=== PATIENT | male | born 1980 | race Caucasian/White ===

== ENCOUNTER 2019-02-19 13:02 | Emergency (ER) | payer BC ==
--- NOTE | 2019-02-19 13:48 | EDM.PDOC ---
ED HPI GENERAL MEDICAL PROBLEM - General Chief Complaint: Upper Extremity Injury/Pain Stated Complaint: SWOLLEN RIGHT ARM Time Seen by Provider: 02/19/19 13:29 Source of Information: Reports: Patient, RN Notes Reviewed History Limitations: Reports: No Limitations - History of Present Illness INITIAL COMMENTS - FREE TEXT/NARRATIVE: The patient is a 88-year-old male who presents to the ED for the evaluation of right arm swelling and pain. The patient states he has a history of the cellulitis, and elbow bursitis. The patient notes that he noticed some redness and pain to his right forearm roughly 1 week ago. He denies any traumatic injury to the area. He states that he went to the walk-in clinic Wednesday and had an ultrasound, and was diagnosed with cellulitis at that time and started on cephalexin. The patient notes that he did take his antibiotics as previously prescribed, however the redness and pain is worsening. He notes there is more swelling to this area. He notes that he still has full range of motion to his hand, he denies any pain into his elbow. There is some skin redness with well demarcated borders. The patient states that he has been taking quite a bit of ibuprofen for pain relief. He cannot state whether or not he has had an actual fever to taking the ibuprofen. He states he's been taking 800 mg 4 times a day. Right Lower Arm Pain Score (Numeric/FACES): 5 - Related Data Allergies Allergy/AdvReac Type Severity Reaction Status Date / Time No Known Allergies Allergy Verified 02/19/19 13:21 Home Meds: Home Meds Albuterol [Ventolin HFA] 1 inh INH ASDIRECTED 02/19/19 [History] Buprenorphine HCl/Naloxone HCl [Suboxone 4 mg-1 mg Sl Film] 1 tab PO ASDIRECTED 02/19/19 [History] Cephalexin [Keflex] 1 tab PO QID 02/19/19 [History] Doxycycline [Vibramycin] 100 mg PO BID #20 tab 02/19/19 [Rx] Past Medical History Respiratory History: Reports: Asthma Dermatologic History: Reports: Other (See Below) Other Dermatologic History: burisitis to left and right elbows Social & Family History - Tobacco Use Smoking Status *Q: Current Every Day Smoker Years of Tobacco use: 8 Packs/Tins Daily: 0.5 - Caffeine Use Caffeine Use: Reports: Coffee - Recreational Drug Use Recreational Drug Use: Yes Drug Use in Last 12 Months: No Review of Systems - Review of Systems Review Of Systems: See Below Constitutional: Reports: No Symptoms Eyes: Reports: No Symptoms Ears: Reports: No Symptoms Nose: Reports: No Symptoms Mouth/Throat: Reports: No Symptoms Respiratory: Reports: No Symptoms Cardiovascular: Reports: No Symptoms GI/Abdominal: Reports: No Symptoms Genitourinary: Reports: No Symptoms Musculoskeletal: Reports: Arm Pain (right arm pain/swelling) ED EXAM, GENERAL - Physical Exam Exam: See Below Exam Limited By: No Limitations General Appearance: Alert, WD/WN, No Apparent Distress Eye Exam: Bilateral Eye: Normal Inspection Respiratory/Chest: No Respiratory Distress, Lungs Clear, Normal Breath Sounds, No Accessory Muscle Use, Chest Non-Tender Cardiovascular: Normal Peripheral Pulses, Regular Rate, Rhythm, No Murmur Peripheral Pulses: 3+: Radial (L), Radial (R) Extremities: Normal Capillary Refill, Arm Pain (to right posterior arm, swelling noted to R forearm), Increased Warmth, Redness (well demarcated borders ) Neurological: Alert, Oriented, Normal Cognition, Normal Gait, No Motor/Sensory Deficits Psychiatric: Normal Affect, Normal Mood Skin Exam: Warm, Dry, Intact, Normal Color, No Rash Course - Vital Signs Last Recorded V/S: Last Vital Signs Temp 97.9 F 02/19/19 13:16 Pulse 86 02/19/19 13:16 Resp 16 02/19/19 13:16 BP 116/82 02/19/19 13:22 Pulse Ox 100 02/19/19 13:16 - Re-Assessments/Exams Free Text/Narrative Re-Assessment/Exam: 02/19/19 13:53 Patient presents to the ED for the evaluation of right arm swelling. I have switched his antibiotics to doxycycline 100 mg twice a day for 10 days. I will have the nurse Georges the border of his cellulitis of the skin marker and have educated him on signs and symptoms for when to be concerned. He may still take ibuprofen as needed for pain relief. Departure - Departure Time of Disposition: 13:44 Disposition: Home, Self-Care 01 Condition: Fair Clinical Impression: Cellulitis of upper extremity Qualifiers: Laterality: right Qualified Code(s): L03.113 - Cellulitis of right upper limb - Discharge Information *PRESCRIPTION DRUG MONITORING PROGRAM REVIEWED*: No *COPY OF PRESCRIPTION DRUG MONITORING REPORT IN PATIENT ELLY: No Prescriptions: Doxycycline [Vibramycin] 100 mg PO BID #20 tab Instructions: Cellulitis, Adult, [id number] Referrals: PCP,None [Primary Care Provider] - Forms: ED Department Discharge Additional Instructions: You have been evaluated in the ED today for the cellulitis on your right arm. Please stop taking the cephalexin as previously prescribed by a provider in the walk-in clinic. You have been provided with a new antibiotic prescription. This is doxycycline 100 mg twice a day for 10 days. This prescription was electronically sent to the [facility] pharmacy located near [facility]. They are open only from 1 to 4 PM today. The borders of your cellulitis have been marked with a skin marker. This will stay on a few days. If the redness should spread at least 2 fingerbreadths beyond this border, this would be cause for concern to return for immediate evaluation. Please return to the ED if your symptoms should change or worsen.
== END 2019-02-19 14:03 | disposition home or self-care (01) ==
LOC: JD.ED 13:02
DX: L03.113 Cellulitis of right upper limb (principal); F17.210 Nicotine dependence, cigarettes, uncomplicated; J45.909 Unspecified asthma, uncomplicated
CPT/HCPCS: 99283

== ENCOUNTER 2019-02-21 09:52 | Emergency (ER) | payer BC ==
[2019-02-21] MEDS ORDERED: Sodium Chloride 0.9% 10 ML Syringe FLUSH PRN (10:20)
--- NOTE | 2019-02-21 11:04 | EDM.PDOC ---
ED HPI GENERAL MEDICAL PROBLEM - General Chief Complaint: Upper Extremity Injury/Pain Stated Complaint: R ARM SWELLING/SEEN WEDNESDAY NOT BETTER Time Seen by Provider: 02/21/19 10:02 Source of Information: Reports: Patient History Limitations: Reports: No Limitations - History of Present Illness INITIAL COMMENTS - FREE TEXT/NARRATIVE: 38 y/o male presents to ER with cc right lower arm pain. He states the pain started 6 days ago. He went to the walk in clinic where is was diagnosis with cellulitis and started on antibiotics. He was seen 3 days ago because the redness had spread and his arm was more swollen. He was given additional antibiotics. He presents today with increased pain, swelling and redness. He reports he feels his hand is going to sleep at times. He denies any fever or chills. He reports he is right handed. He denies any illicit drug use. He admits to using IV drugs in the past. He states he hasn't used in months. He does not have a PCP. Onset Date: 02/15/19 Onset Time: 09:00 Duration: Getting Worse Location: Reports: Upper Extremity, Right Improves with: Reports: None Worsens with: Reports: Movement Associated Symptoms: Denies: Fever/Chills, Nausea/Vomiting, Rash, Shortness of Breath, Weakness - Related Data Allergies Allergy/AdvReac Type Severity Reaction Status Date / Time No Known Allergies Allergy Verified 02/21/19 10:02 Home Meds: Home Meds Albuterol [Ventolin HFA] 1 inh INH ASDIRECTED 02/19/19 [History] Buprenorphine HCl/Naloxone HCl [Suboxone 4 mg-1 mg Sl Film] 1 tab PO ASDIRECTED 02/19/19 [History] Doxycycline [Vibramycin] 100 mg PO BID #20 tab 02/19/19 [Rx] Clindamycin HCl 300 mg PO TID 1 Days #30 capsule 02/21/19 [Rx] Past Medical History Respiratory History: Reports: Asthma Dermatologic History: Reports: Other (See Below) Other Dermatologic History: burisitis to left and right elbows Social & Family History - Tobacco Use Smoking Status *Q: Current Every Day Smoker Years of Tobacco use: 8 Packs/Tins Daily: 0.5 - Caffeine Use Caffeine Use: Reports: Coffee - Recreational Drug Use Recreational Drug Use: No Review of Systems - Review of Systems Review Of Systems: See Below Constitutional: Denies: Chills, Fever Eyes: Reports: No Symptoms Ears: Reports: No Symptoms Nose: Reports: No Symptoms Mouth/Throat: Reports: No Symptoms Respiratory: Denies: Shortness of Breath Cardiovascular: Denies: Chest Pain GI/Abdominal: Reports: No Symptoms Genitourinary: Reports: No Symptoms Musculoskeletal: Reports: Hand Pain, Joint Pain, Other (right lower arm swelling and painful) Skin: Reports: Other (right lower arm redness with moderate swelling) Neurological: Reports: No Symptoms Psychiatric: Reports: No Symptoms ED EXAM, GENERAL - Physical Exam Exam: See Below Exam Limited By: No Limitations General Appearance: Alert, WD/WN, No Apparent Distress Respiratory/Chest: No Respiratory Distress, Lungs Clear, Normal Breath Sounds, No Accessory Muscle Use, Chest Non-Tender Cardiovascular: Normal Peripheral Pulses, Regular Rate, Rhythm, No Edema, No Gallop, No JVD, No Murmur, No Rub Extremities: No Pedal Edema, Limited Range of Motion, Other (right lower later forearm moderate swelling with cellulitis, his hand is cool to touch, neurovascularly intact.) Neurological: Alert, Oriented, CN II-XII Intact, Normal Cognition, Normal Gait Psychiatric: Normal Affect, Normal Mood Skin Exam: Warm, Dry, Intact, No Rash Lymphatic: No Adenopathy Course - Vital Signs Last Recorded V/S: Last Vital Signs Temp 98.9 F 02/21/19 09:59 Pulse 83 02/21/19 09:59 Resp 16 02/21/19 09:59 BP 139/83 02/21/19 09:59 Pulse Ox 99 02/21/19 09:59 - Orders/Labs/Meds Labs: Laboratory Tests 02/21/19 02/21/19 Range/Units 11:38 11:38 D-Dimer, Quantitative 0.84 H (0.19-0.50) mg/L C-Reactive Protein 20.0 H* (<1.0) mg/dL Meds: Medications Discontinued Medications Generic Name Dose Route Start Last Admin Trade Name Freq PRN Reason Stop Dose Admin Clindamycin HCl 450 mg 02/21/19 12:26 02/21/19 12:37 Cleocin PO 02/21/19 12:27 450 mg NOW STA Administration Sodium Chloride 10 ml 02/21/19 10:20 Saline Flush FLUSH ASDIRECTED PRN Keep Vein Open - Re-Assessments/Exams Free Text/Narrative Re-Assessment/Exam: 02/21/19 11:52 Labs pending, delayed because patient is a hard stick. Ultrasound was performed. Waiting for results. 02/21/19 12:00 right arm ultrasound impression forearm edema, no evidence of venous thrombosis was in the right upper extremity. 02/21/19 12:25 d dimer 0.84 I feel this is due to his infection since his ultrasound was negative. CRP is 20. 02/21/19 12:50 I discussed possible admission with patient. Patient elected to go home with additional new antibiotic clindamycin. I instructed the patient appears not better within 48 hours that he should return to emergency room for possible admission for IV antibiotic therapy. Patient verbalized understanding and is comfortable plan for discharge. Instructed patient to follow up with his PCP. I will discharge home with clindamycin probably should not therapy. Instructed to return to the emergency room for any new or acutely worsening symptoms. Departure - Departure Time of Disposition: 12:48 Disposition: Home, Self-Care 01 Clinical Impression: Cellulitis Qualifiers: Site of cellulitis: extremity Site of cellulitis of extremity: upper extremity Laterality: right Qualified Code(s): L03.113 - Cellulitis of right upper limb - Discharge Information Prescriptions: Clindamycin HCl 300 mg PO TID 1 Days #30 capsule Instructions: Cellulitis, Adult Referrals: PCP,None [Primary Care Provider] - Forms: ED Department Discharge Additional Instructions: You have been diagnosis with right forearm cellulitis. I am adding Clindamycin to your antibiotic regiment. follow up with your PCP. Return to the ER for any new or acute worsening symptoms.
--- NOTE | 2019-02-21 11:51 | US ---
Right upper extremity venous ultrasound: Duplex and color flow imaging was obtained of the right internal jugular, subclavian, axillary, brachial, cephalic, basilic, radial and ulnar veins. Left internal jugular vein also evaluated. Subcutaneous edema is seen within the right forearm. Right cephalic vein is small in size. Other right upper extremity veins show normal phasic flow, augmentation and compression. Subclavicular lymph nodes are seen on the right side believed to be within normal limits. Impression: 1. Forearm edema. 2. No evidence of venous thrombosis within the right upper extremity. Diagnostic code #2
[2019-02-21] MEDS ORDERED: Clindamycin HCl 150 MG Cap PO STA (12:26)
== END 2019-02-21 13:00 | disposition home or self-care (01) ==
LOC: JD.ED 09:52
DX: L03.113 Cellulitis of right upper limb (principal); J45.909 Unspecified asthma, uncomplicated; F17.210 Nicotine dependence, cigarettes, uncomplicated; Z79.899 Other long term (current) drug therapy
CPT/HCPCS: 36415; 85379; 86140; 93971; 99284; A9270; 99283

== ENCOUNTER 2019-02-23 10:33 | Inpatient (IN) | payer BC ==
[2019-02-23] MEDS ORDERED: Sodium Chloride 0.9% 1,000 ML IV ONE (11:41)
[2019-02-23] MEDS ORDERED: HYDROmorphone 0.5 MG/0.5 ML Syringe IVPUSH ONE (11:41)
[2019-02-23] MEDS ORDERED: Sodium Chloride 0.9% 10 ML Syringe FLUSH PRN (11:43)
--- NOTE | 2019-02-23 11:48 | EDM.PDOC ---
ED HPI GENERAL MEDICAL PROBLEM - General Chief Complaint: Upper Extremity Injury/Pain Stated Complaint: RT ARM SWOLLEN Time Seen by Provider: 02/23/19 11:34 Source of Information: Reports: Patient History Limitations: Reports: No Limitations - History of Present Illness INITIAL COMMENTS - FREE TEXT/NARRATIVE: 38-year-old male sent over that from the clinic for hospitalization for cellulitis. Review patient's records show he is was seen on and for this. Reportedly symptoms started about a week prior to the . He seen at the walk- in clinic initially started on Keflex. During his ER stay on the switched to doxycycline and most recently during his visit on the he was started on clindamycin as well. He states he has been taking the doxycycline and clindamycin as prescribed but his symptoms are worsening. He did have an ultrasound of the right upper extremity which showed edema but no blood clot. He reports associated symptoms of chills and vomiting but states this could be due to taking the antibiotic on an empty stomach. Reports intermittent numbness and tingling into the arm. Reports significant pain, swelling and erythema to the right arm. Patient was previously seeing Dr. Todd for bursitis to both elbows. He has had trouble with bursitis to the left elbow in particular. Canceled appointment on February [address] Todd. Sounds as if this appointment was to discuss if he would require surgery for the bursitis. He states he's never had any surgeries to either elbow. he has no hardware from any previous fractures in the right arm. 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 Right Arm Pain Score (Numeric/FACES): 8 - Related Data Allergies Allergy/AdvReac Type Severity Reaction Status Date / Time No Known Allergies Allergy Verified 02/23/19 10:48 Home Meds: Home Meds Albuterol [Ventolin HFA] 2 inh INH TID PRN 02/19/19 [History] Buprenorphine HCl/Naloxone HCl [Suboxone 4 mg-1 mg Sl Film] 8 mg PO ASDIRECTED 02/19/19 [History] Doxycycline [Vibramycin] 100 mg PO BID #20 tab 02/19/19 [Rx] Clindamycin HCl 300 mg PO TID 1 Days #30 capsule 02/21/19 [Rx] Past Medical History HEENT History: Reports: Impaired Vision Cardiovascular History: Reports: None Respiratory History: Reports: Asthma Gastrointestinal History: Reports: None Genitourinary History: Reports: None Musculoskeletal History: Reports: None Neurological History: Reports: None Psychiatric History: Reports: None Endocrine/Metabolic History: Reports: None Hematologic History: Reports: None Immunologic History: Reports: None Oncologic (Cancer) History: Reports: None Dermatologic History: Reports: Other (See Below) Other Dermatologic History: burisitis to left and right elbows - Infectious Disease History Infectious Disease History: Reports: None - Past Surgical History HEENT Surgical History: Reports: Oral Surgery Social & Family History - Family History Family Medical History: Noncontributory Cardiac: Reports: [place] Endocrine/Metabolic: Reports: Diabetes, type II - Tobacco Use Smoking Status *Q: Current Every Day Smoker Years of Tobacco use: 10 Packs/Tins Daily: 1 - Caffeine Use Caffeine Use: Reports: Coffee, Soda, Tea - Recreational Drug Use Recreational Drug Use: Yes Drug Use in Last 12 Months: No Recreational Drug Type: Reports: Cocaine, Heroin, Marijuana/Hashish, Methamphetamine Recreational Drug Use Frequency: Not Used In Over 1 Year Review of Systems - Review of Systems Review Of Systems: See Below Constitutional: Reports: Chills. Denies: Fever GI/Abdominal: Reports: Vomiting. Denies: Nausea Musculoskeletal: Reports: Arm Pain (right arm) Skin: Reports: Erythema Neurological: Reports: Numbness (intermittent right arm), Tingling ( intermittent right arm) ED EXAM, GENERAL - Physical Exam Exam: See Below Exam Limited By: No Limitations General Appearance: Alert, WD/WN, No Apparent Distress Respiratory/Chest: No Respiratory Distress, Lungs Clear, Normal Breath Sounds Cardiovascular: Normal Peripheral Pulses, Regular Rate, Rhythm, No Murmur Peripheral Pulses: 2+: Radial (L), Radial (R) Extremities: Normal Range of Motion (right upper extremity), Other (significant swelling and erythema to the right upper extremity, no palpable abscess appreciated, area of erythema is approximately [id number] ) Neurological: Alert, Oriented, Normal Cognition Psychiatric: Normal Affect, Normal Mood Course - Vital Signs Last Recorded V/S: Last Vital Signs Temp 97.7 F 02/23/19 16:04 Pulse 79 02/23/19 16:04 Resp 18 02/23/19 16:04 BP 130/111 H 02/23/19 16:04 Pulse Ox 98 02/23/19 16:04 - Orders/Labs/Meds Orders: Active Orders 24 hr Category Date Time Status Peripheral IV Care [RC] Q2HR Care 02/23/19 11:43 Active CULTURE BLOOD [BC] Stat Lab 02/23/19 13:30 Received CULTURE BLOOD [BC] Stat Lab 02/23/19 17:55 Received DRUG SCREEN, URINE [URCHEM] Stat Lab 02/23/19 13:43 Ordered Sodium Chloride 0.9% [Saline Flush] Med 02/23/19 11:43 Active 10 ml FLUSH ASDIRECTED PRN Blood Culture x2 Reflex Set [OM.PC] Stat Oth 02/23/19 11:41 Ordered Peripheral IV Insertion Adult [OM.PC] Routine Oth 02/23/19 11:43 Ordered Medication Orders Enoxaparin Sodium (Lovenox) 40 mg SUBCUT DAILY [facility] Vancomycin HCl 1 gm/ Sodium (Chloride) 250 mls @ 250 mls/hr IV Q8H [facility] Ketorolac Tromethamine (Toradol) 30 mg IM Q6H PRN PRN Reason: Pain Last Admin: 02/23/19 16:55 Dose: 30 mg Ondansetron HCl (Zofran Odt) 4 mg PO Q4H PRN PRN Reason: nausea, able to take PO Oxycodone HCl (Oxycodone) 5 - 10 mg PO Q4H PRN PRN Reason: Pain (moderate 4-6) Sodium Chloride (Saline Flush) 10 ml FLUSH ASDIRECTED PRN PRN Reason: Keep Vein Open Last Admin: 02/23/19 12:50 Dose: 10 ml Vancomycin HCl (Pharmacy To Dose - Vancomycin) 1 dose .XX ASDIRECTED [facility] Labs: Laboratory Tests 02/23/19 02/23/19 Range/Units 12:30 12:30 WBC 11.33 H (4.23-9.07) K/mm3 RBC 4.80 (4.63-6.08) M/mm3 Hgb 13.6 L (13.7-17.5) gm/L Hct 41.0 (40.1-51.0) % MCV 85.4 (79.0-92.2) fl MCH 28.3 (25.7-32.2) pg MCHC 33.2 (32.2-35.5) g/dl RDW Std Deviation 44.2 H (35.1-43.9) fL Plt Count 400 H (163-337) K/mm3 MPV 9.6 (9.4-12.3) fl Neutrophils % (Manual) 71 H (40-60) % Band Neutrophils % 0 (0-10) % Lymphocytes % (Manual) 22 (20-40) % Atypical Lymphs % 0 % Monocytes % (Manual) 1 L (2-10) % Eosinophils % (Manual) 6 (0.8-7.0) % Basophils % (Manual) 0 L (0.2-1.2) Platelet Estimate Adequate RBC Morph Comment Normal Sodium 137 (136-145) mEq/L Potassium 4.7 (3.5-5.1) mEq/L Chloride 86 L (98-107) mEq/L Carbon Dioxide 28 (21-32) mEq/L Anion Gap 27.7 H (5-15) BUN 19 H (7-18) mg/dL Creatinine 1.0 (0.7-1.3) mg/dL Est Cr Clr Drug Dosing 100.58 mL/min Estimated GFR (MDRD) > 60 (>60) mL/min BUN/Creatinine Ratio 19.0 H (14-18) Glucose 77 (74-106) mg/dL Calcium 9.5 (8.5-10.1) mg/dL Magnesium 1.7 L (1.8-2.4) mg/dl Total Bilirubin 0.3 (0.2-1.0) mg/dL AST 31 (15-37) U/L ALT 36 (16-63) U/L Alkaline Phosphatase 94 (46-116) U/L C-Reactive Protein < 0.2 (<1.0) mg/dL Total Protein 8.2 (6.4-8.2) g/dl Albumin 2.9 L (3.4-5.0) g/dl Globulin 5.3 gm/dL Albumin/Globulin Ratio 0.6 L (1-2) Meds: Medications Generic Name Dose Route Start Last Admin Trade Name Freq PRN Reason Stop Dose Admin Enoxaparin Sodium 40 mg 02/24/19 09:00 Lovenox SUBCUT DAILY [facility] Vancomycin HCl 1 gm/ Sodium 250 mls @ 250 mls/hr 02/24/19 02:00 Chloride IV Q8H [facility] Ketorolac Tromethamine 30 mg 02/23/19 16:53 02/23/19 16:55 Toradol IM 30 mg Q6H PRN Administration Pain Ondansetron HCl 4 mg 02/23/19 16:48 Zofran Odt PO Q4H PRN nausea, able to take PO Oxycodone HCl 5 - 10 mg 02/23/19 16:48 Oxycodone PO Q4H PRN Pain (moderate 4-6) Sodium Chloride 10 ml 02/23/19 11:43 02/23/19 12:50 Saline Flush FLUSH 10 ml ASDIRECTED PRN Administration Keep Vein Open Vancomycin HCl 1 dose 02/23/19 17:00 Pharmacy To Dose - Vancomycin .XX ASDIRECTED YESI Discontinued Medications Generic Name Dose Route Start Last Admin Trade Name Freq PRN Reason Stop Dose Admin Hydromorphone HCl 0.5 mg 02/23/19 11:41 02/23/19 12:47 Dilaudid IVPUSH 02/23/19 11:42 0.5 mg ONETIME ONE Administration Sodium Chloride 1,000 mls @ 999 mls/hr 02/23/19 11:41 02/23/19 12:49 Normal Saline IV 02/23/19 12:41 999 mls/hr ONETIME ONE Administration Vancomycin HCl 1 gm/ 500 mls @ 250 mls/hr 02/23/19 12:15 02/23/19 18:00 Vancomycin HCl 500 mg/ Sodium IV 02/23/19 14:14 250 mls/hr Chloride ONETIME ONE Administration Magnesium Oxide 800 mg 02/23/19 18:00 02/23/19 18:07 Magnesium Oxide PO 02/23/19 18:01 800 mg ONETIME ONE Administration Oxycodone HCl 5 mg 02/23/19 16:26 02/23/19 16:32 Oxycodone PO 02/23/19 16:27 5 mg ONETIME ONE Administration Vancomycin HCl 1 dose 02/23/19 11:41 02/23/19 18:02 Pharmacy To Dose - Vancomycin .XX 02/23/19 11:42 Not Given ONETIME ONE - Re-Assessments/Exams Free Text/Narrative Re-Assessment/Exam: 02/23/19 13:34 Difficulty obtaining IV access. 22 gauge placed to the left anterior chest, unable to obtain blood culutures and start vanc with this. Dr. Todd in ED for another case, informed of patient. Patient seen by Dr. Todd and felt to be only cellulitis. Good ROM of the right arm. Case discussed with Dr. Benz, hospitalist on, agrees to admit the patient pending obtaining more reliable access. Discussed with Dr. Bhatti, surgery electronics research engineer who has come to the ER and placed a central line. Patient to be admitted to the floor under Dr. Benz. Departure - Departure Time of Disposition: 13:00 Disposition: Admitted As Inpatient 67 Condition: Serious Clinical Impression: Cellulitis of upper extremity Qualifiers: Laterality: right Qualified Code(s): L03.113 - Cellulitis of right upper limb - Discharge Information *PRESCRIPTION DRUG MONITORING PROGRAM REVIEWED*: No *COPY OF PRESCRIPTION DRUG MONITORING REPORT IN PATIENT ELLY: No - My Orders Last 24 Hours: My Active Orders 02/23/19 11:41 Blood Culture x2 Reflex Set [OM.PC] Stat 02/23/19 11:43 Peripheral IV Care [RC] Q2HR Sodium Chloride 0.9% [Saline Flush] 10 ml FLUSH ASDIRECTED PRN Peripheral IV Insertion Adult [OM.PC] Routine 02/23/19 13:30 CULTURE BLOOD [BC] Stat 02/23/19 13:43 DRUG SCREEN, URINE [URCHEM] Stat 02/23/19 17:55 CULTURE BLOOD [BC] Stat - Assessment/Plan Last 24 Hours: My Active Orders 02/23/19 11:41 Blood Culture x2 Reflex Set [OM.PC] Stat 02/23/19 11:43 Peripheral IV Care [RC] Q2HR Sodium Chloride 0.9% [Saline Flush] 10 ml FLUSH ASDIRECTED PRN Peripheral IV Insertion Adult [OM.PC] Routine 02/23/19 13:30 CULTURE BLOOD [BC] Stat 02/23/19 13:43 DRUG SCREEN, URINE [URCHEM] Stat 02/23/19 17:55 CULTURE BLOOD [BC] Stat
[2019-02-23] MEDS ORDERED: Vancomycin 1 GM, Vancomycin 500 MG in Sodium Chloride 0.9% 500 ML IV ONE (12:15)
--- NOTE | 2019-02-23 14:23 | PCM.SN ---
- Free Text/Narrative Note: Anesthesia Note: Anesthesia requested for difficult IV placement. 22 gauge to left upper arm placed times two attempts. Site patent and intact and flushed with 20ml's of normal saline. Anesthesia attempted via US guidance to place a larger bore IV catheter, without any success. (2 attempts noted.) Anesthesia attempted to draw blood for lab studies, with only a small amount of blood obtained. Anesthesia discussed difficult IV placement with patient history of IV drug abuse with Dr. Winn and Dr. Benz. Recommendation for Central Catheter placement recommended for intermediate frame tender antibiotic therapy and warranted blood draws. Thank you! aPt Vo CRNA
--- NOTE | 2019-02-23 15:41 | PCM.CONS ---
H&P History of Present Illness - General Date of Service: 02/23/19 Admit Problem/Dx: Admission Diagnosis/Problem Admission Diagnosis/Problem Cellulitis Source of Information: Patient, Provider History Limitations: Reports: No Limitations - History of Present Illness Initial Comments - Free Text/Narative: The patient is a 38 y/o gentleman who presents with a right forearm cellulitis. He reports the pain started about 2 weeks ago, but really started to become symptomatic in the past week. He was treated with a course of PO cephalexin, and then a PO course of doxycycline and clindamycin, but this did not address the infection. He presented to the ED for continued treatment. IV access was attempted in a peripheral vein, but was unsuccessful. Consult was placed for central venous access. Right Arm Pain Score (Numeric/FACES): 8 - Related Data Allergies/Adverse Reactions: Allergies Allergy/AdvReac Type Severity Reaction Status Date / Time No Known Allergies Allergy Verified 02/23/19 10:48 Home Medications: Home Meds Albuterol [Ventolin HFA] 1 inh INH ASDIRECTED 02/19/19 [History] Buprenorphine HCl/Naloxone HCl [Suboxone 4 mg-1 mg Sl Film] 1 tab PO ASDIRECTED 02/19/19 [History] Doxycycline [Vibramycin] 100 mg PO BID #20 tab 02/19/19 [Rx] Clindamycin HCl 300 mg PO TID 1 Days #30 capsule 02/21/19 [Rx] Past Medical History HEENT History: Reports: Impaired Vision Cardiovascular History: Reports: None Respiratory History: Reports: Asthma Gastrointestinal History: Reports: None Genitourinary History: Reports: None Musculoskeletal History: Reports: None Neurological History: Reports: None Psychiatric History: Reports: None Endocrine/Metabolic History: Reports: None Hematologic History: Reports: None Immunologic History: Reports: None Oncologic (Cancer) History: Reports: None Dermatologic History: Reports: Other (See Below) Other Dermatologic History: burisitis to left and right elbows - Infectious Disease History Infectious Disease History: Reports: None - Past Surgical History HEENT Surgical History: Reports: Oral Surgery Social & Family History - Family History Cardiac: Reports: [place] Endocrine/Metabolic: Reports: Diabetes, type II - Tobacco Use Smoking Status *Q: Current Every Day Smoker Years of Tobacco use: 10 Packs/Tins Daily: 1 - Caffeine Use Caffeine Use: Reports: Coffee, Soda, Tea - Recreational Drug Use Recreational Drug Use: Yes Drug Use in Last 12 Months: No Recreational Drug Type: Reports: Cocaine, Heroin, Marijuana/Hashish, Methamphetamine Recreational Drug Use Frequency: Not Used In Over 1 Year H&P Review of Systems - Review of Systems: Review Of Systems: See Below General: Reports: No Symptoms HEENT: Reports: No Symptoms Pulmonary: Reports: Other (asthma symptoms) Cardiovascular: Reports: No Symptoms Gastrointestinal: Reports: No Symptoms Genitourinary: Reports: No Symptoms Musculoskeletal: Reports: Other (erythema and pain in right forearm) Skin: Reports: Other (erythema of right forearm) Psychiatric: Reports: No Symptoms Neurological: Reports: No Symptoms Exam - Exam Exam: See Below - Vital Signs Vital Signs: Last Vital Signs Temp 36.9 C 02/23/19 10:52 Pulse 84 02/23/19 10:52 Resp 16 02/23/19 10:52 BP 144/84 H 02/23/19 10:52 Pulse Ox 100 02/23/19 10:52 Weight: 70.307 kg - Exam Quality Assessment: No: Supplemental Oxygen General: Alert, Oriented, Mild Distress (secondary to pain) HEENT: Conjunctiva Clear, EOMI Neck: Supple Lungs: Normal Respiratory Effort GI/Abdominal Exam: Soft, Non-Tender Extremities: Normal Inspection, No Pedal Edema Peripheral Pulses: 2+: Dorsalis Pedis (L), Dorsalis Pedis (R) Skin: Dry, Intact, Other (erythema and swelling involving the volar aspect of the right forarm, no fluctuance) Neurological: Cranial Nerves Intact Neuro Extensive - Mental Status: Alert, Oriented x3 - Patient Data Lab Results Last 24 hrs: Laboratory Results - last 24 hr 02/23/19 02/23/19 Range/Units 12:30 12:30 WBC 11.33 H (4.23-9.07) K/mm3 RBC 4.80 (4.63-6.08) M/mm3 Hgb 13.6 L (13.7-17.5) gm/L Hct 41.0 (40.1-51.0) % MCV 85.4 (79.0-92.2) fl MCH 28.3 (25.7-32.2) pg MCHC 33.2 (32.2-35.5) g/dl RDW Std Deviation 44.2 H (35.1-43.9) fL Plt Count 400 H (163-337) K/mm3 MPV 9.6 (9.4-12.3) fl Neutrophils % (Manual) 71 H (40-60) % Band Neutrophils % 0 (0-10) % Lymphocytes % (Manual) 22 (20-40) % Atypical Lymphs % 0 % Monocytes % (Manual) 1 L (2-10) % Eosinophils % (Manual) 6 (0.8-7.0) % Basophils % (Manual) 0 L (0.2-1.2) Platelet Estimate Adequate RBC Morph Comment Normal Sodium 137 (136-145) mEq/L Potassium 4.7 (3.5-5.1) mEq/L Chloride 86 L (98-107) mEq/L Carbon Dioxide 28 (21-32) mEq/L Anion Gap 27.7 H (5-15) BUN 19 H (7-18) mg/dL Creatinine 1.0 (0.7-1.3) mg/dL Est Cr Clr Drug Dosing 100.58 mL/min Estimated GFR (MDRD) > 60 (>60) mL/min BUN/Creatinine Ratio 19.0 H (14-18) Glucose 77 (74-106) mg/dL Calcium 9.5 (8.5-10.1) mg/dL Magnesium 1.7 L (1.8-2.4) mg/dl Total Bilirubin 0.3 (0.2-1.0) mg/dL AST 31 (15-37) U/L ALT 36 (16-63) U/L Alkaline Phosphatase 94 (46-116) U/L C-Reactive Protein < 0.2 (<1.0) mg/dL Total Protein 8.2 (6.4-8.2) g/dl Albumin 2.9 L (3.4-5.0) g/dl Globulin 5.3 gm/dL Albumin/Globulin Ratio 0.6 L (1-2) Result Diagrams: 02/23/19 12:30 02/23/19 12:30 Consult PN Assessment/Plan Procedures: Procedures EMERGENCY DEPT VISIT (02/19/19) (1) Cellulitis of upper extremity Current Visit: No Qualifiers: Laterality: right Qualified Code(s): L03.113 - Cellulitis of right upper limb Problem List Initiated/Reviewed/Updated: Yes My Orders Last 24 Hours: My Active Orders 02/23/19 15:19 Chest 1V Frontal [CR] Stat Plan: 38 y/o male with celluitis of right forearm, need for venous access - Discussed risks of infection and pneumothorax as well as some blood loss associated with central line placement. Written consent was obtained. Placed a right central venous catheter in the IJ - will obtain CXR to confirm placement and check for PTX - medical management per primary team Marci Higgins MD General Surgery
--- NOTE | 2019-02-23 15:43 | PCM.OPNOTE ---
- General Post-Op/Procedure Note Date of Surgery/Procedure: 02/23/19 Operative Procedure(s): central line placement in the right internal jugular vein Findings: patent internal jugular Pre Op Diagnosis: inabilitly to find peripheral venous access, need for IV antibiotics Post-Op Diagnosis: same Anesthesia Technique: Local Primary Surgeon: Marci Higgins Pathology: none EBL in mLs: 5 Complications: none apparent Condition: Good
--- NOTE | 2019-02-23 15:44 | PCM.PRNOTE ---
- Free Text/Narrative Note: Date: February 23, 2019 Pre-procedure diagnosis: cellulitis of the right forearm, unable to gain peripheral IV access Post-procedure diagnosis: Same Procedure: Ultrasound guided placement of right internal jugular vein central venous catheter Surgeon: Marci Higgins MD Anesthesia: 1% lidocaine Estimated blood loss: 5mL IVF: N/A Indication: Intravenous access for antibiotic therapy Description of the procedure: A time-out was completed verifying correct patient, procedure, and site. The patient was placed in supine position appropriate for central line placement based on the vein to be cannulated. The patients right neck was prepped and draped in sterile fashion. 1% Lidocaine was used to anesthetize the surrounding skin area. The ultrasound was used to isolate the internal jugular vein. The vein was accessed with a single puncture and the guidewire was placed into the lumen without difficulty. A triple lumen 7-[place] catheter was introduced into the the internal jugular vein using the Seldinger technique and under ultrasound guidance. The catheter was threaded smoothly over the guide wire and appropriate blood return was obtained. Each lumen of the catheter was evacuated of air and flushed with sterile saline. The catheter was then sutured in place to the skin and a sterile dressing applied. The patient tolerated the procedure well and there were no apparent complications. A chest x-ray was ordered to confirm placement. Marci Higgins MD General Surgery
[2019-02-23] MEDS ORDERED: oxyCODONE 5 MG Tab PO ONE (16:26)
[2019-02-23] MEDS ORDERED: Ondansetron 4 MG Tab.DIS PO PRN (16:48)
[2019-02-23] MEDS: Ketorolac 30 MG/ML SDV IM PRN (16:55)
--- NOTE | 2019-02-23 16:55 | PCM.HP ---
H&P History of Present Illness - General Date of Service: 02/23/19 Admit Problem/Dx: Admission Diagnosis/Problem Admission Diagnosis/Problem Cellulitis - History of Present Illness Initial Comments - Free Text/Narative: 38-year-old male presented to the emergency room with right arm pain for the last 2-1/2 weeks. Patient states he does hit his arm regularly and he started developing redness at the right elbow to half weeks ago. It slowly grew and the pain worsened with it. On February 17 he went into the walk-in clinic who started him on Keflex. Symptoms worsened over the next 2 days so he returned to the walk -in clinic and they sent him to the emergency room. At the emergency room he was given doxycycline and after 2 more days of no improvement he returned to the emergency room. At that point he was given clindamycin and after 2 more days he is now here with worsening pain. Patient denies any fever or chills. He states that the arm has swollen significantly. He did have some night sweats last night. Emergency room patient was evaluated by both emergency room doctor and Dr. Clement in orthopedic surgery. It was felt that this is nonpurulent cellulitis and recommendation was to come in for IV antibiotics. In the emergency room they were unable to obtain as a large enough peripheral IV and central line placement was requested by the emergency room provider. Patient does have a history of multidrug use. He is on Suboxone for opioid use disorder. Patient was given Dilaudid 0.5 mg in the emergency room. He is on Suboxone one strip twice a day which is 8 mg per strip. Right Arm Pain Score (Numeric/FACES): 8 - Related Data Allergies/Adverse Reactions: Allergies Allergy/AdvReac Type Severity Reaction Status Date / Time No Known Allergies Allergy Verified 02/23/19 10:48 Home Medications: Home Meds Albuterol [Ventolin HFA] 1 inh INH ASDIRECTED 02/19/19 [History] Buprenorphine HCl/Naloxone HCl [Suboxone 4 mg-1 mg Sl Film] 1 tab PO ASDIRECTED 02/19/19 [History] Doxycycline [Vibramycin] 100 mg PO BID #20 tab 02/19/19 [Rx] Clindamycin HCl 300 mg PO TID 1 Days #30 capsule 02/21/19 [Rx] Past Medical History HEENT History: Reports: Impaired Vision Cardiovascular History: Reports: None Respiratory History: Reports: Asthma Gastrointestinal History: Reports: None Genitourinary History: Reports: None Musculoskeletal History: Reports: None Neurological History: Reports: None Psychiatric History: Reports: None Endocrine/Metabolic History: Reports: None Hematologic History: Reports: None Immunologic History: Reports: None Oncologic (Cancer) History: Reports: None Dermatologic History: Reports: Other (See Below) Other Dermatologic History: burisitis to left and right elbows - Infectious Disease History Infectious Disease History: Reports: None - Past Surgical History HEENT Surgical History: Reports: Oral Surgery Social & Family History - Family History Family Medical History: Noncontributory Cardiac: Reports: [place] Endocrine/Metabolic: Reports: Diabetes, type II - Tobacco Use Smoking Status *Q: Current Every Day Smoker Years of Tobacco use: 10 Packs/Tins Daily: 1 - Caffeine Use Caffeine Use: Reports: Coffee, Soda, Tea - Recreational Drug Use Recreational Drug Use: Yes Drug Use in Last 12 Months: No Recreational Drug Type: Reports: Cocaine, Heroin, Marijuana/Hashish, Methamphetamine Recreational Drug Use Frequency: Not Used In Over 1 Year H&P Review of Systems - Review of Systems: Review Of Systems: ROS reveals no pertinent complaints other than HPI. Exam - Exam Exam: See Below - Vital Signs Vital Signs: Last Vital Signs Temp 98.5 F 02/23/19 10:52 Pulse 84 02/23/19 10:52 Resp 16 02/23/19 10:52 BP 144/84 H 02/23/19 10:52 Pulse Ox 100 02/23/19 10:52 Weight: 155 lb - Exam General: Alert, Oriented, Other (moderate to severe pain) HEENT: Conjunctiva Clear, Hearing Intact, Mucosa Moist & [place] Neck: Supple, Trachea Midline Lungs: Clear to Auscultation, Normal Respiratory Effort Cardiovascular: Regular Rate, Regular Rhythm GI/Abdominal Exam: Normal Bowel Sounds, Soft, Non-Tender, No Organomegaly, No Distention, No Abnormal Bruit Back Exam: Normal Inspection Extremities: Arm Pain, Increased Warmth, Other (right forearm and elbow are red , swollen, and extremity on the markings placed by providers in the past. It is exquisitely tender. Nonfluctuant.) Skin: Warm Neurological: Cranial Nerves Intact Neuro Extensive - Mental Status: Alert, Oriented x3, Normal Mood/Affect, Normal Cognition Neuro Extensive - Motor, Sensory, Reflexes: CN II-XII Intact, Normal Gait Psychiatric: Alert, Normal Affect, Normal Mood - Patient Data Lab Results Last 24 hrs: Laboratory Results - last 24 hr 02/23/19 02/23/19 Range/Units 12:30 12:30 WBC 11.33 H (4.23-9.07) K/mm3 RBC 4.80 (4.63-6.08) M/mm3 Hgb 13.6 L (13.7-17.5) gm/L Hct 41.0 (40.1-51.0) % MCV 85.4 (79.0-92.2) fl MCH 28.3 (25.7-32.2) pg MCHC 33.2 (32.2-35.5) g/dl RDW Std Deviation 44.2 H (35.1-43.9) fL Plt Count 400 H (163-337) K/mm3 MPV 9.6 (9.4-12.3) fl Neutrophils % (Manual) 71 H (40-60) % Band Neutrophils % 0 (0-10) % Lymphocytes % (Manual) 22 (20-40) % Atypical Lymphs % 0 % Monocytes % (Manual) 1 L (2-10) % Eosinophils % (Manual) 6 (0.8-7.0) % Basophils % (Manual) 0 L (0.2-1.2) Platelet Estimate Adequate RBC Morph Comment Normal Sodium 137 (136-145) mEq/L Potassium 4.7 (3.5-5.1) mEq/L Chloride 86 L (98-107) mEq/L Carbon Dioxide 28 (21-32) mEq/L Anion Gap 27.7 H (5-15) BUN 19 H (7-18) mg/dL Creatinine 1.0 (0.7-1.3) mg/dL Est Cr Clr Drug Dosing 100.58 mL/min Estimated GFR (MDRD) > 60 (>60) mL/min BUN/Creatinine Ratio 19.0 H (14-18) Glucose 77 (74-106) mg/dL Calcium 9.5 (8.5-10.1) mg/dL Magnesium 1.7 L (1.8-2.4) mg/dl Total Bilirubin 0.3 (0.2-1.0) mg/dL AST 31 (15-37) U/L ALT 36 (16-63) U/L Alkaline Phosphatase 94 (46-116) U/L C-Reactive Protein < 0.2 (<1.0) mg/dL Total Protein 8.2 (6.4-8.2) g/dl Albumin 2.9 L (3.4-5.0) g/dl Globulin 5.3 gm/dL Albumin/Globulin Ratio 0.6 L (1-2) Result Diagrams: 02/23/19 12:30 02/23/19 12:30 - Problem List (1) Narcotic abuse in remission SNOMED Code(s): 3187174 ICD Code: F11.11 - OPIOID ABUSE, IN REMISSION Status: Acute Current Visit : Yes (2) Cellulitis of upper extremity Status: Acute Current Visit: No Qualifiers: Laterality: right Qualified Code(s): L03.113 - Cellulitis of right upper limb Problem List Initiated/Reviewed/Updated: Yes Orders Last 24hrs: Active Orders 24 hr Category Date Time Status Admission Status [Patient Status] [ADT] Routine ADT 02/23/19 13:53 Active Notify Provider Consults [RC] ASDIRECTED Care 02/23/19 15:18 Active Oxygen Therapy [RC] PRN Care 02/23/19 16:48 Ordered Peripheral IV Care [RC] Q2HR Care 02/23/19 11:43 Active Up ad Halima [RC] ASDIRECTED Care 02/23/19 16:48 Ordered VTE/DVT Education [RC] PER UNIT ROUTINE Care 02/23/19 16:48 Ordered Vital Signs [RC] Q4H Care 02/23/19 16:48 Ordered Consult to Physician [CONS] Stat Cons 02/23/19 15:17 Active Regular Diet [DIET] Diet 02/23/19 Dinner Ordered Chest 1V Frontal [CR] Routine Exams 02/23/19 16:40 Ordered Chest 1V Frontal [CR] Stat Exams 02/23/19 15:19 Taken C-REACTIVE PROTEIN [CHEM] AM Lab 02/24/19 05:11 Ordered CBC WITH AUTO DIFF [HEME] AM Lab 02/24/19 05:11 Ordered COMPREHENSIVE METABOLIC PN,CMP [CHEM] AM Lab 02/24/19 05:11 Ordered CULTURE BLOOD [BC] Stat Lab 02/23/19 11:43 Ordered CULTURE BLOOD [BC] Stat Lab 02/23/19 13:30 Received DRUG SCREEN, URINE [URCHEM] Stat Lab 02/23/19 13:43 Ordered LACTIC ACID [CHEM] Stat Lab 02/23/19 11:41 Ordered MAGNESIUM [CHEM] AM Lab 02/24/19 05:11 Ordered METH-RESIST S.AUR,MRSA BY PCR [MOLEC] Routine Lab 02/23/19 16:26 Received PHOSPHORUS [CHEM] AM Lab 02/24/19 05:11 Ordered Ketorolac [Toradol] Med 02/23/19 16:53 Ordered 30 mg IM Q6H PRN Ondansetron [Zofran ODT] Med 02/23/19 16:48 Ordered 4 mg PO Q4H PRN Sodium Chloride 0.9% [Saline Flush] Med 02/23/19 11:43 Active 10 ml FLUSH ASDIRECTED PRN oxyCODONE Med 02/23/19 16:48 Ordered 5 - 10 mg PO Q4H PRN Blood Culture x2 Reflex Set [OM.PC] Stat Oth 02/23/19 11:41 Ordered Peripheral IV Insertion Adult [OM.PC] Routine Oth 02/23/19 11:43 Ordered Resuscitation Status Routine Resus Stat 02/23/19 16:11 Ordered Medication Orders Ketorolac Tromethamine (Toradol) 30 mg IM Q6H PRN PRN Reason: Pain Ondansetron HCl (Zofran Odt) 4 mg PO Q4H PRN PRN Reason: nausea, able to take PO Oxycodone HCl (Oxycodone) 5 - 10 mg PO Q4H PRN PRN Reason: Pain (moderate 4-6) Sodium Chloride (Saline Flush) 10 ml FLUSH ASDIRECTED PRN PRN Reason: Keep Vein Open Last Admin: 02/23/19 12:50 Dose: 10 ml Assessment/Plan Comment:: Cellulitis right upper extremity * After placement of central line start vancomycin pharmacy to dose. * Patient has significant pain so he will get oxycodone 5-10 mg every 4 hours when necessary pain and Toradol 30 mg every 6 hours when necessary pain * Recheck CBC and C-reactive protein in the morning * Recheck CMP and get a mag and phosphorus. * MRSA screen * Blood cultures done in the emergency room narcotic use disorder on Suboxone * Hold Suboxone * Use PO oxycodone and Toradol IM for pain length of stay planned for 2 days.
--- NOTE | 2019-02-23 17:05 | CR ---
Chest: Portable view of the chest was obtained. Comparison: No previous study. Heart size and mediastinum are within normal limits for portable technique. Lungs are clear. Bony structures are grossly intact. Impression: 1. Nothing acute is seen on portable chest x-ray. Diagnostic code #1
--- NOTE | 2019-02-23 17:44 | PCM.OPNOTE ---
- General Post-Op/Procedure Note Date of Surgery/Procedure: 02/23/19 Operative Procedure(s): repositioning of central venous catheter Findings: central venous catheter in the right axillary vein, moved to the approximate right atrioventricular junction Pre Op Diagnosis: malpositioned central venous catheter Post-Op Diagnosis: same Anesthesia Technique: Local Primary Surgeon: Marci Higgins EBL in mLs: 1 Complications: none apparent Condition: Good
--- NOTE | 2019-02-23 17:47 | PCM.PRNOTE ---
- Free Text/Narrative Note: Date: February 23, 2019 Pre-procedure diagnosis: malpositioned centrla venous catheter Post-procedure diagnosis: Same Procedure: Repositioning of right internal jugular vein central venous catheter with x-ray guidance Surgeon: Marci Higgins MD Anesthesia: 1% lidocaine Estimated blood loss: 5mL IVF: N/A Indication: Intravenous access for antibiotic therapy Description of the procedure: A time-out was completed verifying correct patient, procedure, and site. The patient was placed in supine position appropriate for central line placement based on the vein to be cannulated. The patients right neck was prepped and draped in sterile fashion. A guidewire was placed into the lumen of the catheter and an x-ray was done to show placement. The catheter was removed with the wire left in the vein. The wire was then repositioned towards the SVC and confirmed with x-ray. This process was continued until the wire was in the IVC. The catheter was threaded smoothly over the guide wire and appropriate blood return was obtained. The catheter was then positioned correctly and the wired removed. X-ray was repeated to confirm correct location. Each lumen of the catheter was evacuated of air and flushed with sterile saline. 1% Lidocaine was used to anesthetize the surrounding skin area. The catheter was then sutured in place to the skin and a sterile dressing applied. The patient tolerated the procedure well and there were no apparent complications. Marci Higgins MD General Surgery
--- NOTE | 2019-02-23 17:51 | CR ---
Chest: Portable view of the chest was obtained. Comparison: Prior chest x-ray performed earlier on the same day (3:40 PM). Not mentioned on prior study is PICC line entering from the right jugular region which extended into the right subclavian vein. This PICC line has been repositioned and now lies near the right atrial and superior vena cava junction in satisfactory position. Heart size and mediastinum are within normal limits for portable technique. Lungs are clear. Bony structures are unremarkable. Impression: 1. Right-sided PICC line with tip in satisfactory position as described above. 2. Nothing acute is otherwise seen on portable chest x-ray. Diagnostic code #2
[2019-02-23] MEDS ORDERED: Magnesium Oxide 400 MG Tab PO ONE (18:00)
[2019-02-23] MEDS: oxyCODONE 5 MG Tab PO PRN (21:50)
[2019-02-24] MEDS: Ketorolac 30 MG/ML SDV IM PRN ×2 (00:29→08:11)
[2019-02-24] MEDS: oxyCODONE 5 MG Tab PO PRN ×5 (05:26→22:58)
[2019-02-24] MEDS: Enoxaparin 40 MG/0.4 ML Syringe SUBCUT SCH (08:16)
--- NOTE | 2019-02-24 08:47 | PCM.PN ---
- General Info Date of Service: 02/24/19 Admission Dx/Problem (Free Text): 'S HPI: "38-year-old male presented to the emergency room with right arm pain for the last 2-1/2 weeks. Patient states he does hit his arm regularly and he started developing redness at the right elbow to half weeks ago. It slowly grew and the pain worsened with it. On February 17 he went into the walk-in clinic who started him on Keflex. Symptoms worsened over the next 2 days so he returned to the walk -in clinic and they sent him to the emergency room. At the emergency room he was given doxycycline and after 2 more days of no improvement he returned to the emergency room. At that point he was given clindamycin and after 2 more days he is now here with worsening pain. Patient denies any fever or chills. He states that the arm has swollen significantly. He did have some night sweats last night. Emergency room patient was evaluated by both emergency room doctor and Dr. Clement in orthopedic surgery. It was felt that this is nonpurulent cellulitis and recommendation was to come in for IV antibiotics. In the emergency room they were unable to obtain as a large enough peripheral IV and central line placement was requested by the emergency room provider. Patient does have a history of multidrug use. He is on Suboxone for opioid use disorder. Patient was given Dilaudid 0.5 mg in the emergency room. He is on Suboxone one strip twice a day which is 8 mg per strip." 02/24/19, pain and edema improving, will switch to amox/clav and Septra DS combination, stop vancomycin. - Review of Systems Systems Review Comment:: Review Of Systems: ROS reveals no pertinent complaints other than HPI. - Patient Data Vitals - Most Recent: Last Vital Signs Temp 97.9 F 02/23/19 20:31 Pulse 76 02/24/19 03:57 Resp 14 02/24/19 03:57 BP 104/69 02/24/19 03:57 Pulse Ox 95 02/24/19 03:57 Weight - Most Recent: 149 lb 3.2 oz I&O - Last 24 Hours: Intake & Output 02/23/19 02/24/19 02/24/19 19:59 03:59 11:59 Intake Total 320 500 Output Total 800 Balance 320 -300 Lab Results Last 24 Hours: Laboratory Results - last 24 hr 02/23/19 02/23/19 02/23/19 Range/Units 12:30 12:30 16:26 WBC 11.33 H (4.23-9.07) K/mm3 RBC 4.80 (4.63-6.08) M/mm3 Hgb 13.6 L (13.7-17.5) gm/L Hct 41.0 (40.1-51.0) % MCV 85.4 (79.0-92.2) fl MCH 28.3 (25.7-32.2) pg MCHC 33.2 (32.2-35.5) g/dl RDW Std Deviation 44.2 H (35.1-43.9) fL Plt Count 400 H (163-337) K/mm3 MPV 9.6 (9.4-12.3) fl Neut % (Auto) (34.0-67.9) % Lymph % (Auto) (21.8-53.1) % [place] % (Auto) (5.3-12.2) % Eos % (Auto) (0.8-7.0) Baso % (Auto) (0.1-1.2) % Neut # (Auto) (1.78-5.38) K/mm3 Lymph # (Auto) (1.32-3.57) K/mm3 [place] # (Auto) (0.30-0.82) K/mm3 Eos # (Auto) (0.04-0.54) K/mm3 Baso # (Auto) (0.01-0.08) K/mm3 Neutrophils % (Manual) 71 H (40-60) % Band Neutrophils % 0 (0-10) % Lymphocytes % (Manual) 22 (20-40) % Atypical Lymphs % 0 % Monocytes % (Manual) 1 L (2-10) % Eosinophils % (Manual) 6 (0.8-7.0) % Basophils % (Manual) 0 L (0.2-1.2) Platelet Estimate Adequate RBC Morph Comment Normal Sodium 137 (136-145) mEq/L Potassium 4.7 (3.5-5.1) mEq/L Chloride 86 L (98-107) mEq/L Carbon Dioxide 28 (21-32) mEq/L Anion Gap 27.7 H (5-15) BUN 19 H (7-18) mg/dL Creatinine 1.0 (0.7-1.3) mg/dL Est Cr Clr Drug Dosing 100.58 mL/min Estimated GFR (MDRD) > 60 (>60) mL/min BUN/Creatinine Ratio 19.0 H (14-18) Glucose 77 (74-106) mg/dL Lactic Acid (0.4-2.0) mmol/L Calcium 9.5 (8.5-10.1) mg/dL Phosphorus (2.6-4.7) mg/dL Magnesium 1.7 L (1.8-2.4) mg/dl Total Bilirubin 0.3 (0.2-1.0) mg/dL AST 31 (15-37) U/L ALT 36 (16-63) U/L Alkaline Phosphatase 94 (46-116) U/L C-Reactive Protein TNP Total Protein 8.2 (6.4-8.2) g/dl Albumin 2.9 L (3.4-5.0) g/dl Globulin 5.3 gm/dL Albumin/Globulin Ratio 0.6 L (1-2) Urine Opiates Screen (RORRAJ=888) Ur Buprenorphine Scrn (CUTOFF=10) Ur Oxycodone Screen (UZL4UK=841) Urine Methadone Screen (MYD4VJ=202) Ur Propoxyphene Screen (KQLDVV=770) Ur Barbiturates Screen (EQUQOF=736) Ur Tricyclics Screen (MQTYJV=011) Ur Phencyclidine Scrn (CUTOFF=25) Ur Amphetamine Screen (QILWJC=017) U Methamphetamines Scrn (UDUBUW=714) U Benzodiazepines Scrn (CDUMBQ=832) U Cocaine Metab Screen (LCNXAD=410) U Marijuana (THC) Screen (CUTOFF=50) MRSA (PCR) Negative 02/23/19 02/23/19 02/24/19 Range/Units 17:55 21:59 05:15 WBC 9.83 H (4.23-9.07) K/mm3 RBC 4.31 L (4.63-6.08) M/mm3 Hgb 12.4 L (13.7-17.5) gm/L Hct 37.0 L (40.1-51.0) % MCV 85.8 (79.0-92.2) fl MCH 28.8 (25.7-32.2) pg MCHC 33.5 (32.2-35.5) g/dl RDW Std Deviation 44.7 H (35.1-43.9) fL Plt Count 355 H (163-337) K/mm3 MPV 9.3 L (9.4-12.3) fl Neut % (Auto) 71.3 H (34.0-67.9) % Lymph % (Auto) 15.2 L (21.8-53.1) % [place] % (Auto) 11.0 (5.3-12.2) % Eos % (Auto) 2.2 (0.8-7.0) Baso % (Auto) 0.2 (0.1-1.2) % Neut # (Auto) 7.01 H (1.78-5.38) K/mm3 Lymph # (Auto) 1.49 (1.32-3.57) K/mm3 [place] # (Auto) 1.08 H (0.30-0.82) K/mm3 Eos # (Auto) 0.22 (0.04-0.54) K/mm3 Baso # (Auto) 0.02 (0.01-0.08) K/mm3 Neutrophils % (Manual) (40-60) % Band Neutrophils % (0-10) % Lymphocytes % (Manual) (20-40) % Atypical Lymphs % % Monocytes % (Manual) (2-10) % Eosinophils % (Manual) (0.8-7.0) % Basophils % (Manual) (0.2-1.2) Platelet Estimate RBC Morph Comment Sodium (136-145) mEq/L Potassium (3.5-5.1) mEq/L Chloride (98-107) mEq/L Carbon Dioxide (21-32) mEq/L Anion Gap (5-15) BUN (7-18) mg/dL Creatinine (0.7-1.3) mg/dL Est Cr Clr Drug Dosing mL/min Estimated GFR (MDRD) (>60) mL/min BUN/Creatinine Ratio (14-18) Glucose (74-106) mg/dL Lactic Acid 0.4 (0.4-2.0) mmol/L Calcium (8.5-10.1) mg/dL Phosphorus (2.6-4.7) mg/dL Magnesium (1.8-2.4) mg/dl Total Bilirubin (0.2-1.0) mg/dL AST (15-37) U/L ALT (16-63) U/L Alkaline Phosphatase (46-116) U/L C-Reactive Protein Total Protein (6.4-8.2) g/dl Albumin (3.4-5.0) g/dl Globulin gm/dL Albumin/Globulin Ratio (1-2) Urine Opiates Screen Negative (AQJPKF=627) Ur Buprenorphine Scrn Presumptive positive (CUTOFF=10) Ur Oxycodone Screen Presumptive positive H (KEN1WZ=733) Urine Methadone Screen Negative (GDV6WN=286) Ur Propoxyphene Screen Negative (UWWXRY=227) Ur Barbiturates Screen Negative (NJAYDS=065) Ur Tricyclics Screen Negative (CAZYMP=695) Ur Phencyclidine Scrn Negative (CUTOFF=25) Ur Amphetamine Screen Negative (NURZUK=864) U Methamphetamines Scrn Negative (MEJGSH=857) U Benzodiazepines Scrn Negative (OHXZSR=164) U Cocaine Metab Screen Negative (KIWJWS=525) U Marijuana (THC) Screen Negative (CUTOFF=50) MRSA (PCR) 02/24/19 Range/Units 05:15 WBC (4.23-9.07) K/mm3 RBC (4.63-6.08) M/mm3 Hgb (13.7-17.5) gm/L Hct (40.1-51.0) % MCV (79.0-92.2) fl MCH (25.7-32.2) pg MCHC (32.2-35.5) g/dl RDW Std Deviation (35.1-43.9) fL Plt Count (163-337) K/mm3 MPV (9.4-12.3) fl Neut % (Auto) (34.0-67.9) % Lymph % (Auto) (21.8-53.1) % [place] % (Auto) (5.3-12.2) % Eos % (Auto) (0.8-7.0) Baso % (Auto) (0.1-1.2) % Neut # (Auto) (1.78-5.38) K/mm3 Lymph # (Auto) (1.32-3.57) K/mm3 [place] # (Auto) (0.30-0.82) K/mm3 Eos # (Auto) (0.04-0.54) K/mm3 Baso # (Auto) (0.01-0.08) K/mm3 Neutrophils % (Manual) (40-60) % Band Neutrophils % (0-10) % Lymphocytes % (Manual) (20-40) % Atypical Lymphs % % Monocytes % (Manual) (2-10) % Eosinophils % (Manual) (0.8-7.0) % Basophils % (Manual) (0.2-1.2) Platelet Estimate RBC Morph Comment Sodium 138 (136-145) mEq/L Potassium 4.0 (3.5-5.1) mEq/L Chloride 103 D (98-107) mEq/L Carbon Dioxide 25 (21-32) mEq/L Anion Gap 14.0 (5-15) BUN 19 H (7-18) mg/dL Creatinine 1.0 (0.7-1.3) mg/dL Est Cr Clr Drug Dosing 96.81 mL/min Estimated GFR (MDRD) > 60 (>60) mL/min BUN/Creatinine Ratio 19.0 H (14-18) Glucose 86 (74-106) mg/dL Lactic Acid (0.4-2.0) mmol/L Calcium 8.7 (8.5-10.1) mg/dL Phosphorus 3.7 (2.6-4.7) mg/dL Magnesium 1.7 L (1.8-2.4) mg/dl Total Bilirubin 0.2 (0.2-1.0) mg/dL AST 18 (15-37) U/L ALT 26 (16-63) U/L Alkaline Phosphatase 78 (46-116) U/L C-Reactive Protein 19.7 H* Total Protein 6.7 (6.4-8.2) g/dl Albumin 2.3 L (3.4-5.0) g/dl Globulin 4.4 gm/dL Albumin/Globulin Ratio 0.5 L (1-2) Urine Opiates Screen (XIMTFC=638) Ur Buprenorphine Scrn (CUTOFF=10) Ur Oxycodone Screen (QCZ8HN=733) Urine Methadone Screen (NCU3NF=077) Ur Propoxyphene Screen (XSFGHZ=580) Ur Barbiturates Screen (BLAONA=569) Ur Tricyclics Screen (EZCEMS=852) Ur Phencyclidine Scrn (CUTOFF=25) Ur Amphetamine Screen (MKBUHE=085) U Methamphetamines Scrn (SCAOTK=061) U Benzodiazepines Scrn (QYTLWU=340) U Cocaine Metab Screen (TZYTRC=206) U Marijuana (THC) Screen (CUTOFF=50) MRSA (PCR) Med Orders - Current: Current Medications Enoxaparin Sodium (Lovenox) 40 mg SUBCUT DAILY [facility] Last Admin: 02/24/19 08:16 Dose: 40 mg Vancomycin HCl 1 gm/ Sodium (Chloride) 250 mls @ 250 mls/hr IV Q8H [facility] Last Admin: 02/24/19 02:38 Dose: 250 mls/hr Ketorolac Tromethamine (Toradol) 30 mg IM Q6H PRN PRN Reason: Pain Last Admin: 02/24/19 08:11 Dose: 30 mg Ondansetron HCl (Zofran Odt) 4 mg PO Q4H PRN PRN Reason: nausea, able to take PO Oxycodone HCl (Oxycodone) 5 - 10 mg PO Q4H PRN PRN Reason: Pain (moderate 4-6) Last Admin: 02/24/19 05:26 Dose: 5 mg Sodium Chloride (Saline Flush) 10 ml FLUSH ASDIRECTED PRN PRN Reason: Keep Vein Open Last Admin: 02/23/19 12:50 Dose: 10 ml Vancomycin HCl (Pharmacy To Dose - Vancomycin) 0 dose .XX ASDIRECTED PRN PRN Reason: RX TO DOSE VANCOMYCIN Discontinued Medications Hydromorphone HCl (Dilaudid) 0.5 mg IVPUSH ONETIME ONE Stop: 02/23/19 11:42 Last Admin: 02/23/19 12:47 Dose: 0.5 mg Sodium Chloride (Normal Saline) 1,000 mls @ 999 mls/hr IV ONETIME ONE Stop: 02/23/19 12:41 Last Admin: 02/23/19 12:49 Dose: 999 mls/hr Vancomycin HCl 1 gm/Vancomycin HCl 500 mg/ Sodium Chloride 500 mls @ 250 mls/ hr IV ONETIME ONE Stop: 02/23/19 14:14 Last Admin: 02/23/19 18:00 Dose: 250 mls/hr Vancomycin HCl 1 gm/ Sodium (Chloride) 250 mls @ 250 mls/hr IV Q8H [facility] Last Admin: 02/24/19 06:06 Dose: Not Given Magnesium Oxide (Magnesium Oxide) 800 mg PO ONETIME ONE Stop: 02/23/19 18:01 Last Admin: 02/23/19 18:07 Dose: 800 mg Oxycodone HCl (Oxycodone) 5 mg PO ONETIME ONE Stop: 02/23/19 16:27 Last Admin: 02/23/19 16:32 Dose: 5 mg Vancomycin HCl (Pharmacy To Dose - Vancomycin) 1 dose .XX ONETIME ONE Stop: 02/23/19 11:42 Last Admin: 02/23/19 18:02 Dose: Not Given - Exam Physical Findings Comments:: General: Alert, Oriented, Other (moderate to severe pain) HEENT: Conjunctiva Clear, Hearing Intact, Mucosa Moist & [place] Neck: Supple, Trachea Midline Lungs: Clear to Auscultation, Normal Respiratory Effort Cardiovascular: Regular Rate, Regular Rhythm GI/Abdominal Exam: Normal Bowel Sounds, Soft, Non-Tender, No Organomegaly, No Distention, No Abnormal Bruit Back Exam: Normal Inspection Extremities: Arm Pain, Increased Warmth, Other (right forearm and elbow are red , swollen, and extremity on the markings placed by providers in the past. It is exquisitely tender. Nonfluctuant.) Skin: Warm Neurological: Cranial Nerves Intact Neuro Extensive - Mental Status: Alert, Oriented x3, Normal Mood/Affect, Normal Cognition Neuro Extensive - Motor, Sensory, Reflexes: CN II-XII Intact, Normal Gait Psychiatric: Alert, Normal Affect, Normal Mood - Problem List & Annotations (1) Cellulitis of upper extremity Status: Acute Current Visit: Yes Qualifiers: Laterality: right Qualified Code(s): L03.113 - Cellulitis of right upper limb - Problem List Review Problem List Initiated/Reviewed/Updated: Yes - Plan Plan:: Cellulitis right upper extremity * start po amox/clav and Septra DS. * stop vancomycin.
[2019-02-24] MEDS: Sulfamethoxazole/Trimethoprim 800-160 MG Tab PO SCH ×2 (13:10→21:26)
[2019-02-24] MEDS: Amoxicillin/Clavulanate K 875-125 MG Tab PO SCH ×2 (14:16→21:26)
[2019-02-24] MEDS ORDERED: Magnesium Sulfate/Water 2 GM in Premix Bag 1 BAG IV ONE (14:53)
[2019-02-25] MEDS: oxyCODONE 5 MG Tab PO PRN ×6 (03:13→20:22)
[2019-02-25] MEDS: Enoxaparin 40 MG/0.4 ML Syringe SUBCUT SCH (08:42)
[2019-02-25] MEDS: Amoxicillin/Clavulanate K 875-125 MG Tab PO SCH ×2 (08:42→16:42)
[2019-02-25] MEDS: Sulfamethoxazole/Trimethoprim 800-160 MG Tab PO SCH (08:42)
--- NOTE | 2019-02-25 13:16 | PCM.PN ---
- General Info Date of Service: 02/25/19 Admission Dx/Problem (Free Text): 'S HPI: "38-year-old male presented to the emergency room with right arm pain for the last 2-1/2 weeks. Patient states he does hit his arm regularly and he started developing redness at the right elbow to half weeks ago. It slowly grew and the pain worsened with it. On February 17 he went into the walk-in clinic who started him on Keflex. Symptoms worsened over the next 2 days so he returned to the walk -in clinic and they sent him to the emergency room. At the emergency room he was given doxycycline and after 2 more days of no improvement he returned to the emergency room. At that point he was given clindamycin and after 2 more days he is now here with worsening pain. Patient denies any fever or chills. He states that the arm has swollen significantly. He did have some night sweats last night. Emergency room patient was evaluated by both emergency room doctor and Dr. Clement in orthopedic surgery. It was felt that this is nonpurulent cellulitis and recommendation was to come in for IV antibiotics. In the emergency room they were unable to obtain as a large enough peripheral IV and central line placement was requested by the emergency room provider. Patient does have a history of multidrug use. He is on Suboxone for opioid use disorder. Patient was given Dilaudid 0.5 mg in the emergency room. He is on Suboxone one strip twice a day which is 8 mg per strip." 02/24/19, pain and edema improving, will switch to amox/clav and Septra DS combination, stop vancomycin. 02/25/2019, clinically minimal improvement, if no change in AM will switch back to IV vancomycin, pain controlled. - Patient Data Vitals - Most Recent: Last Vital Signs Temp 98.1 F 02/25/19 12:08 Pulse 77 02/25/19 12:08 Resp 16 02/25/19 12:08 BP 116/90 02/25/19 12:08 Pulse Ox 97 02/25/19 12:08 Weight - Most Recent: 151 lb 3.2 oz I&O - Last 24 Hours: Intake & Output 02/25/19 02/25/19 02/25/19 03:59 11:59 19:59 Intake Total 500 Balance 500 Lab Results Last 24 Hours: Laboratory Results - last 24 hr 02/25/19 02/25/19 Range/Units 04:51 04:51 WBC 10.04 H (4.23-9.07) K/mm3 RBC 4.35 L (4.63-6.08) M/mm3 Hgb 12.3 L (13.7-17.5) gm/L Hct 37.4 L (40.1-51.0) % MCV 86.0 (79.0-92.2) fl MCH 28.3 (25.7-32.2) pg MCHC 32.9 (32.2-35.5) g/dl RDW Std Deviation 43.7 (35.1-43.9) fL Plt Count 398 H (163-337) K/mm3 MPV 9.1 L (9.4-12.3) fl Neut % (Auto) 74.9 H (34.0-67.9) % Lymph % (Auto) 13.0 L (21.8-53.1) % [place] % (Auto) 9.5 (5.3-12.2) % Eos % (Auto) 2.1 (0.8-7.0) Baso % (Auto) 0.2 (0.1-1.2) % Neut # (Auto) 7.52 H (1.78-5.38) K/mm3 Lymph # (Auto) 1.31 L (1.32-3.57) K/mm3 [place] # (Auto) 0.95 H (0.30-0.82) K/mm3 Eos # (Auto) 0.21 (0.04-0.54) K/mm3 Baso # (Auto) 0.02 (0.01-0.08) K/mm3 Sodium 137 (136-145) mEq/L Potassium 4.0 (3.5-5.1) mEq/L Chloride 101 (98-107) mEq/L Carbon Dioxide 27 (21-32) mEq/L Anion Gap 13.0 (5-15) BUN 20 H (7-18) mg/dL Creatinine 1.1 (0.7-1.3) mg/dL Est Cr Clr Drug Dosing 88.01 mL/min Estimated GFR (MDRD) > 60 (>60) mL/min BUN/Creatinine Ratio 18.2 H (14-18) Glucose 86 (74-106) mg/dL Calcium 8.7 (8.5-10.1) mg/dL [place] Results Last 24 Hours: Microbiology 02/23/19 17:55 Aerobic Blood Culture - Preliminary Blood - Venous - Lab Draw NO GROWTH AFTER 1 DAY Anaerobic Blood Culture - Preliminary NO GROWTH AFTER 1 DAY 02/23/19 13:30 Aerobic Blood Culture - Preliminary Blood - Venous NO GROWTH AFTER 1 DAY Anaerobic Blood Culture - Final Med Orders - Current: Current Medications Amoxicillin/Clavulanate Potassium (Augmentin 875 Mg/125 Mg) 1 tab PO TID [facility] Last Admin: 02/25/19 08:42 Dose: 1 tab Enoxaparin Sodium (Lovenox) 40 mg SUBCUT DAILY [facility] Last Admin: 02/25/19 08:42 Dose: 40 mg Ondansetron HCl (Zofran Odt) 4 mg PO Q4H PRN PRN Reason: nausea, able to take PO Oxycodone HCl (Oxycodone) 5 - 10 mg PO Q4H PRN PRN Reason: Pain (moderate 4-6) Last Admin: 02/25/19 12:44 Dose: 10 mg Sodium Chloride (Saline Flush) 10 ml FLUSH ASDIRECTED PRN PRN Reason: Keep Vein Open Last Admin: 02/23/19 12:50 Dose: 10 ml Trimethoprim/Sulfamethoxazole (Septra Ds) 1 tab PO BID [facility] Last Admin: 02/25/19 08:42 Dose: 1 tab Discontinued Medications Hydromorphone HCl (Dilaudid) 0.5 mg IVPUSH ONETIME ONE Stop: 02/23/19 11:42 Last Admin: 02/23/19 12:47 Dose: 0.5 mg Sodium Chloride (Normal Saline) 1,000 mls @ 999 mls/hr IV ONETIME ONE Stop: 02/23/19 12:41 Last Admin: 02/23/19 12:49 Dose: 999 mls/hr Vancomycin HCl 1 gm/Vancomycin HCl 500 mg/ Sodium Chloride 500 mls @ 250 mls/ hr IV ONETIME ONE Stop: 02/23/19 14:14 Last Admin: 02/23/19 18:00 Dose: 250 mls/hr Vancomycin HCl 1 gm/ Sodium (Chloride) 250 mls @ 250 mls/hr IV Q8H [facility] Last Admin: 02/24/19 06:06 Dose: Not Given Vancomycin HCl 1 gm/ Sodium (Chloride) 250 mls @ 250 mls/hr IV Q8H [facility] Last Admin: 02/24/19 16:40 Dose: Not Given Magnesium Sulfate 2 gm/ Premix 50 mls @ 25 mls/hr IV ONETIME ONE Stop: 02/24/19 16:52 Last Admin: 02/24/19 16:37 Dose: 25 mls/hr Ketorolac Tromethamine (Toradol) 30 mg IM Q6H PRN PRN Reason: Pain Last Admin: 02/24/19 08:11 Dose: 30 mg Magnesium Oxide (Magnesium Oxide) 800 mg PO ONETIME ONE Stop: 02/23/19 18:01 Last Admin: 02/23/19 18:07 Dose: 800 mg Oxycodone HCl (Oxycodone) 5 mg PO ONETIME ONE Stop: 02/23/19 16:27 Last Admin: 02/23/19 16:32 Dose: 5 mg Vancomycin HCl (Pharmacy To Dose - Vancomycin) 1 dose .XX ONETIME ONE Stop: 02/23/19 11:42 Last Admin: 02/23/19 18:02 Dose: Not Given Vancomycin HCl (Pharmacy To Dose - Vancomycin) 0 dose .XX ASDIRECTED PRN PRN Reason: RX TO DOSE VANCOMYCIN - Exam Physical Findings Comments:: General: Alert, Oriented, Other (moderate to severe pain) HEENT: Conjunctiva Clear, Hearing Intact, Mucosa Moist & [place] Neck: Supple, Trachea Midline Lungs: Clear to Auscultation, Normal Respiratory Effort Cardiovascular: Regular Rate, Regular Rhythm GI/Abdominal Exam: Normal Bowel Sounds, Soft, Non-Tender, No Organomegaly, No Distention, No Abnormal Bruit Back Exam: Normal Inspection Extremities: Arm Pain, Increased Warmth, Other (right forearm and elbow are red , swollen, and extremity on the markings placed by providers in the past. It is exquisitely tender. Nonfluctuant.) Skin: Warm Neurological: Cranial Nerves Intact Neuro Extensive - Mental Status: Alert, Oriented x3, Normal Mood/Affect, Normal Cognition Neuro Extensive - Motor, Sensory, Reflexes: CN II-XII Intact, Normal Gait Psychiatric: Alert, Normal Affect, Normal Mood - Problem List & Annotations (1) Cellulitis of upper extremity Status: Acute Current Visit: Yes Qualifiers: Laterality: right Qualified Code(s): L03.113 - Cellulitis of right upper limb - Problem List Review Problem List Initiated/Reviewed/Updated: Yes - My Orders Last 24 Hours: My Active Orders 02/24/19 15:00 Amoxicillin/Clavulanate K [Augmentin 875 MG/125 MG] 1 tab PO TID - Plan Plan:: Cellulitis right upper extremity * continue po amox/clav and Septra DS for the next 24 hours, back to vancomycin if no significant improvement. * pain control with po oxycodone.
[2019-02-26] MEDS: oxyCODONE 5 MG Tab PO PRN ×6 (03:03→21:52)
[2019-02-26] MEDS: Enoxaparin 40 MG/0.4 ML Syringe SUBCUT SCH (09:01)
[2019-02-26] MEDS ORDERED: Magnesium Sulfate/Water 4 GM in Premix Bag 1 BAG IV ONE (10:38)
[2019-02-26] MEDS ORDERED: Piperacillin/Tazobactam 4.5 GM in Sodium Chloride 0.9% 100 ML IV ONE (12:00)
[2019-02-26] MEDS ORDERED: Clindamycin Phosphate 900 MG in Sodium Chloride 0.9% 100 ML IV SCH ×2 (12:00→12:51)
--- NOTE | 2019-02-26 12:15 | PCM.PN ---
- General Info Date of Service: 02/26/19 Admission Dx/Problem (Free Text): 'S HPI: "38-year-old male presented to the emergency room with right arm pain for the last 2-1/2 weeks. Patient states he does hit his arm regularly and he started developing redness at the right elbow to half weeks ago. It slowly grew and the pain worsened with it. On February 17 he went into the walk-in clinic who started him on Keflex. Symptoms worsened over the next 2 days so he returned to the walk -in clinic and they sent him to the emergency room. At the emergency room he was given doxycycline and after 2 more days of no improvement he returned to the emergency room. At that point he was given clindamycin and after 2 more days he is now here with worsening pain. Patient denies any fever or chills. He states that the arm has swollen significantly. He did have some night sweats last night. Emergency room patient was evaluated by both emergency room doctor and Dr. Clement in orthopedic surgery. It was felt that this is nonpurulent cellulitis and recommendation was to come in for IV antibiotics. In the emergency room they were unable to obtain as a large enough peripheral IV and central line placement was requested by the emergency room provider. Patient does have a history of multidrug use. He is on Suboxone for opioid use disorder. Patient was given Dilaudid 0.5 mg in the emergency room. He is on Suboxone one strip twice a day which is 8 mg per strip." 02/24/19, pain and edema improving, will switch to amox/clav and Septra DS combination, stop vancomycin. 02/25/2019, clinically minimal improvement, if no change in AM will switch back to IV vancomycin, pain controlled. 02/26/2019, no major change, will add pip/tazo and clindamycin, obtain repeat CT. - Patient Data Vitals - Most Recent: Last Vital Signs Temp 98.1 F 02/26/19 08:01 Pulse 77 02/26/19 08:01 Resp 20 02/26/19 08:01 BP 106/77 02/26/19 08:01 Pulse Ox 91 L 02/26/19 08:01 Weight - Most Recent: 149 lb 3.2 oz I&O - Last 24 Hours: Intake & Output 02/26/19 02/26/19 02/26/19 03:59 11:59 19:59 Intake Total 1500 Balance 1500 Lab Results Last 24 Hours: Laboratory Results - last 24 hr 02/26/19 02/26/19 02/26/19 Range/Units 05:15 05:15 05:15 WBC 14.00 H (4.23-9.07) K/mm3 RBC 4.27 L (4.63-6.08) M/mm3 Hgb 12.0 L (13.7-17.5) gm/L Hct 36.3 L (40.1-51.0) % MCV 85.0 (79.0-92.2) fl MCH 28.1 (25.7-32.2) pg MCHC 33.1 (32.2-35.5) g/dl RDW Std Deviation 42.9 (35.1-43.9) fL Plt Count 463 H (163-337) K/mm3 MPV 9.0 L (9.4-12.3) fl Neut % (Auto) 76.0 H (34.0-67.9) % Lymph % (Auto) 13.7 L (21.8-53.1) % [place] % (Auto) 9.1 (5.3-12.2) % Eos % (Auto) 0.9 (0.8-7.0) Baso % (Auto) 0.1 (0.1-1.2) % Neut # (Auto) 10.63 H (1.78-5.38) K/mm3 Lymph # (Auto) 1.92 (1.32-3.57) K/mm3 [place] # (Auto) 1.28 H (0.30-0.82) K/mm3 Eos # (Auto) 0.12 (0.04-0.54) K/mm3 Baso # (Auto) 0.02 (0.01-0.08) K/mm3 Sodium 136 (136-145) mEq/L Potassium 3.6 (3.5-5.1) mEq/L Chloride 100 (98-107) mEq/L Carbon Dioxide 25 (21-32) mEq/L Anion Gap 14.6 (5-15) BUN 17 (7-18) mg/dL Creatinine 1.1 (0.7-1.3) mg/dL Est Cr Clr Drug Dosing 89.19 mL/min Estimated GFR (MDRD) > 60 (>60) mL/min BUN/Creatinine Ratio 15.5 (14-18) Glucose 111 H (74-106) mg/dL Lactic Acid (0.4-2.0) mmol/L Calcium 8.6 (8.5-10.1) mg/dL Phosphorus 3.4 (2.6-4.7) mg/dL Magnesium 1.6 L (1.8-2.4) mg/dl 02/26/19 Range/Units 05:15 WBC (4.23-9.07) K/mm3 RBC (4.63-6.08) M/mm3 Hgb (13.7-17.5) gm/L Hct (40.1-51.0) % MCV (79.0-92.2) fl MCH (25.7-32.2) pg MCHC (32.2-35.5) g/dl RDW Std Deviation (35.1-43.9) fL Plt Count (163-337) K/mm3 MPV (9.4-12.3) fl Neut % (Auto) (34.0-67.9) % Lymph % (Auto) (21.8-53.1) % [place] % (Auto) (5.3-12.2) % Eos % (Auto) (0.8-7.0) Baso % (Auto) (0.1-1.2) % Neut # (Auto) (1.78-5.38) K/mm3 Lymph # (Auto) (1.32-3.57) K/mm3 [place] # (Auto) (0.30-0.82) K/mm3 Eos # (Auto) (0.04-0.54) K/mm3 Baso # (Auto) (0.01-0.08) K/mm3 Sodium (136-145) mEq/L Potassium (3.5-5.1) mEq/L Chloride (98-107) mEq/L Carbon Dioxide (21-32) mEq/L Anion Gap (5-15) BUN (7-18) mg/dL Creatinine (0.7-1.3) mg/dL Est Cr Clr Drug Dosing mL/min Estimated GFR (MDRD) (>60) mL/min BUN/Creatinine Ratio (14-18) Glucose (74-106) mg/dL Lactic Acid 0.6 (0.4-2.0) mmol/L Calcium (8.5-10.1) mg/dL Phosphorus (2.6-4.7) mg/dL Magnesium (1.8-2.4) mg/dl [place] Results Last 24 Hours: Microbiology 02/23/19 17:55 Aerobic Blood Culture - Preliminary Blood - Venous - Lab Draw NO GROWTH AFTER 2 DAYS Anaerobic Blood Culture - Preliminary NO GROWTH AFTER 2 DAYS 02/23/19 13:30 Aerobic Blood Culture - Preliminary Blood - Venous NO GROWTH AFTER 2 DAYS Anaerobic Blood Culture - Final Med Orders - Current: Current Medications Enoxaparin Sodium (Lovenox) 40 mg SUBCUT DAILY [facility] Last Admin: 02/26/19 09:01 Dose: 40 mg Vancomycin HCl 1 gm/ Sodium (Chloride) 250 mls @ 250 mls/hr IV Q8H [facility] Last Admin: 02/26/19 10:40 Dose: 250 mls/hr Magnesium Sulfate 4 gm/ Premix 50 mls @ 12.5 mls/hr IV ONETIME ONE Stop: 02/26/19 14:37 Last Admin: 02/26/19 11:30 Dose: 12.5 mls/hr Clindamycin Phosphate 900 mg/ (Sodium Chloride) 106 mls @ 200 mls/hr IV Q6H [facility] Piperacillin Sod/Tazobactam (Sod 4.5 gm/ Sodium Chloride) 100 mls @ 25 mls/hr IV Q8H [facility] Piperacillin Sod/Tazobactam (Sod 4.5 gm/ Sodium Chloride) 100 mls @ 200 mls/hr IV ONETIME ONE Stop: 02/26/19 12:29 Ondansetron HCl (Zofran Odt) 4 mg PO Q4H PRN PRN Reason: nausea, able to take PO Oxycodone HCl (Oxycodone) 5 - 10 mg PO Q3H PRN PRN Reason: Pain (moderate 4-6) Last Admin: 02/26/19 10:43 Dose: 10 mg Sodium Chloride (Saline Flush) 10 ml FLUSH ASDIRECTED PRN PRN Reason: Keep Vein Open Last Admin: 02/23/19 12:50 Dose: 10 ml Vancomycin HCl (Pharmacy To Dose - Vancomycin) 1 dose .XX ASDIRECTED [facility] Discontinued Medications Amoxicillin/Clavulanate Potassium (Augmentin 875 Mg/125 Mg) 1 tab PO TID [facility] Last Admin: 02/25/19 16:42 Dose: 1 tab Hydromorphone HCl (Dilaudid) 0.5 mg IVPUSH ONETIME ONE Stop: 02/23/19 11:42 Last Admin: 02/23/19 12:47 Dose: 0.5 mg Sodium Chloride (Normal Saline) 1,000 mls @ 999 mls/hr IV ONETIME ONE Stop: 02/23/19 12:41 Last Admin: 02/23/19 12:49 Dose: 999 mls/hr Vancomycin HCl 1 gm/Vancomycin HCl 500 mg/ Sodium Chloride 500 mls @ 250 mls/ hr IV ONETIME ONE Stop: 02/23/19 14:14 Last Admin: 02/23/19 18:00 Dose: 250 mls/hr Vancomycin HCl 1 gm/ Sodium (Chloride) 250 mls @ 250 mls/hr IV Q8H [facility] Last Admin: 02/24/19 06:06 Dose: Not Given Vancomycin HCl 1 gm/ Sodium (Chloride) 250 mls @ 250 mls/hr IV Q8H [facility] Last Admin: 02/24/19 16:40 Dose: Not Given Magnesium Sulfate 2 gm/ Premix 50 mls @ 25 mls/hr IV ONETIME ONE Stop: 02/24/19 16:52 Last Admin: 02/24/19 16:37 Dose: 25 mls/hr Ketorolac Tromethamine (Toradol) 30 mg IM Q6H PRN PRN Reason: Pain Last Admin: 02/24/19 08:11 Dose: 30 mg Magnesium Oxide (Magnesium Oxide) 800 mg PO ONETIME ONE Stop: 02/23/19 18:01 Last Admin: 02/23/19 18:07 Dose: 800 mg Oxycodone HCl (Oxycodone) 5 mg PO ONETIME ONE Stop: 02/23/19 16:27 Last Admin: 02/23/19 16:32 Dose: 5 mg Oxycodone HCl (Oxycodone) 5 - 10 mg PO Q4H PRN PRN Reason: Pain (moderate 4-6) Last Admin: 02/25/19 12:44 Dose: 10 mg Trimethoprim/Sulfamethoxazole (Septra Ds) 1 tab PO BID [facility] Last Admin: 02/25/19 08:42 Dose: 1 tab Vancomycin HCl (Pharmacy To Dose - Vancomycin) 1 dose .XX ONETIME ONE Stop: 02/23/19 11:42 Last Admin: 02/23/19 18:02 Dose: Not Given Vancomycin HCl (Pharmacy To Dose - Vancomycin) 0 dose .XX ASDIRECTED PRN PRN Reason: RX TO DOSE VANCOMYCIN - Exam Physical Findings Comments:: General: Alert, Oriented, Other (moderate to severe pain) HEENT: Conjunctiva Clear, Hearing Intact, Mucosa Moist & [place] Neck: Supple, Trachea Midline Lungs: Clear to Auscultation, Normal Respiratory Effort Cardiovascular: Regular Rate, Regular Rhythm GI/Abdominal Exam: Normal Bowel Sounds, Soft, Non-Tender, No Organomegaly, No Distention, No Abnormal Bruit Back Exam: Normal Inspection Extremities: Arm Pain, Increased Warmth, Other (right forearm and elbow are red , swollen, and extremity on the markings placed by providers in the past. It is exquisitely tender. Nonfluctuant.) Skin: Warm Neurological: Cranial Nerves Intact Neuro Extensive - Mental Status: Alert, Oriented x3, Normal Mood/Affect, Normal Cognition Neuro Extensive - Motor, Sensory, Reflexes: CN II-XII Intact, Normal Gait Psychiatric: Alert, Normal Affect, Normal Mood - Problem List & Annotations (1) Cellulitis of upper extremity Status: Acute Current Visit: Yes Qualifiers: Laterality: right Qualified Code(s): L03.113 - Cellulitis of right upper limb - Problem List Review Problem List Initiated/Reviewed/Updated: Yes - My Orders Last 24 Hours: My Active Orders 02/25/19 13:19 oxyCODONE 5 - 10 mg PO Q3H PRN 02/25/19 17:15 Pharmacy to Dose - Vancomycin 1 dose .XX ASDIRECTED 02/26/19 10:38 Forearm wo Cont Rt [CT] Routine Magnesium Sulfate/Water [Magnesium Sulfate in Water Premix] 4 gm Premix Bag 1 bag IV ONETIME 02/26/19 12:00 Clindamycin Phosphate [Cleocin] 900 mg Sodium Chloride 0.9% [Normal Saline] 100 ml IV Q6H Piperacillin/Tazobactam [Piperacil-Tazobact] 4.5 gm Sodium Chloride 0.9% [ Normal Saline] 100 ml IV ONETIME 02/26/19 20:00 Piperacillin/Tazobactam [Piperacil-Tazobact] 4.5 gm Sodium Chloride 0.9% [ Normal Saline] 100 ml IV Q8H - Plan Plan:: Cellulitis right upper extremity * no improvement on po abx, back on vancomycin with addition of pip/tazo and clindamycin IV, CT pending. * pain control with po oxycodone.
[2019-02-26] MEDS ORDERED: Clindamycin Phosphate 900 MG/6 ML SDV ONE (12:49)
[2019-02-26] MEDS: Clindamycin Phosphate 900 MG in Sodium Chloride 0.9% 100 ML IV SCH ×2 (13:09→18:17)
[2019-02-26] MEDS: Saccharomyces Boulardii (Probiotic) 250 MG Cap PO SCH (20:04)
[2019-02-26] MEDS: Piperacillin/Tazobactam 4.5 GM in Sodium Chloride 0.9% 100 ML IV SCH (20:04)
[2019-02-27] MEDS: Clindamycin Phosphate 900 MG in Sodium Chloride 0.9% 100 ML IV SCH ×2 (01:01→07:38)
[2019-02-27] MEDS: oxyCODONE 5 MG Tab PO PRN ×5 (01:02→21:09)
[2019-02-27] MEDS: Piperacillin/Tazobactam 4.5 GM in Sodium Chloride 0.9% 100 ML IV SCH ×3 (04:42→19:58)
[2019-02-27] MEDS: Saccharomyces Boulardii (Probiotic) 250 MG Cap PO SCH ×2 (08:48→20:09)
[2019-02-27] MEDS: Enoxaparin 40 MG/0.4 ML Syringe SUBCUT SCH (08:49)
--- NOTE | 2019-02-27 11:56 | PCM.PN ---
- General Info Date of Service: 02/27/19 Admission Dx/Problem (Free Text): 'S HPI: "38-year-old male presented to the emergency room with right arm pain for the last 2-1/2 weeks. Patient states he does hit his arm regularly and he started developing redness at the right elbow to half weeks ago. It slowly grew and the pain worsened with it. On February 17 he went into the walk-in clinic who started him on Keflex. Symptoms worsened over the next 2 days so he returned to the walk -in clinic and they sent him to the emergency room. At the emergency room he was given doxycycline and after 2 more days of no improvement he returned to the emergency room. At that point he was given clindamycin and after 2 more days he is now here with worsening pain. Patient denies any fever or chills. He states that the arm has swollen significantly. He did have some night sweats last night. Emergency room patient was evaluated by both emergency room doctor and Dr. Clement in orthopedic surgery. It was felt that this is nonpurulent cellulitis and recommendation was to come in for IV antibiotics. In the emergency room they were unable to obtain as a large enough peripheral IV and central line placement was requested by the emergency room provider. Patient does have a history of multidrug use. He is on Suboxone for opioid use disorder. Patient was given Dilaudid 0.5 mg in the emergency room. He is on Suboxone one strip twice a day which is 8 mg per strip." 02/24/19, pain and edema improving, will switch to amox/clav and Septra DS combination, stop vancomycin. 02/25/2019, clinically minimal improvement, if no change in AM will switch back to IV vancomycin, pain controlled. 02/26/2019, no major change, will add pip/tazo and clindamycin, obtain repeat CT. 02/27/2019, marked improvement, less edema and erythema as well as pain, CT showed very early stage of possible phlegmon, will involve surgery if improvement stalls. - Patient Data Vitals - Most Recent: Last Vital Signs Temp 98.4 F 02/27/19 07:52 Pulse 84 02/27/19 07:52 Resp 16 02/27/19 07:52 BP 99/55 L 02/27/19 07:52 Pulse Ox 92 L 02/27/19 07:52 Weight - Most Recent: 147 lb 6.4 oz I&O - Last 24 Hours: Intake & Output 02/26/19 02/27/19 02/27/19 19:59 03:59 11:59 Intake Total 2300 1902 Balance 2300 1902 Lab Results Last 24 Hours: Laboratory Results - last 24 hr 02/26/19 02/27/19 02/27/19 Range/Units 17:40 04:35 04:35 WBC 11.16 H (4.23-9.07) K/mm3 RBC 4.45 L (4.63-6.08) M/mm3 Hgb 12.7 L (13.7-17.5) gm/L Hct 37.7 L (40.1-51.0) % MCV 84.7 (79.0-92.2) fl MCH 28.5 (25.7-32.2) pg MCHC 33.7 (32.2-35.5) g/dl RDW Std Deviation 43.0 (35.1-43.9) fL Plt Count 533 H (163-337) K/mm3 MPV 9.2 L (9.4-12.3) fl Neut % (Auto) 67.0 (34.0-67.9) % Lymph % (Auto) 19.1 L (21.8-53.1) % [place] % (Auto) 12.6 H (5.3-12.2) % Eos % (Auto) 0.9 (0.8-7.0) Baso % (Auto) 0.1 (0.1-1.2) % Neut # (Auto) 7.48 H (1.78-5.38) K/mm3 Lymph # (Auto) 2.13 (1.32-3.57) K/mm3 [place] # (Auto) 1.41 H (0.30-0.82) K/mm3 Eos # (Auto) 0.10 (0.04-0.54) K/mm3 Baso # (Auto) 0.01 (0.01-0.08) K/mm3 Lactic Acid 0.5 (0.4-2.0) mmol/L Vancomycin Trough 11.7 (10.0-20.0) [place] Results Last 24 Hours: Microbiology 02/23/19 17:55 Aerobic Blood Culture - Preliminary Blood - Venous - Lab Draw NO GROWTH AFTER 3 DAYS Anaerobic Blood Culture - Preliminary NO GROWTH AFTER 3 DAYS 02/23/19 13:30 Aerobic Blood Culture - Preliminary Blood - Venous NO GROWTH AFTER 3 DAYS Anaerobic Blood Culture - Final Med Orders - Current: Current Medications Enoxaparin Sodium (Lovenox) 40 mg SUBCUT DAILY [facility] Last Admin: 02/27/19 08:49 Dose: 40 mg Vancomycin HCl 1 gm/ Sodium (Chloride) 250 mls @ 250 mls/hr IV Q8H [facility] Last Admin: 02/27/19 09:17 Dose: 250 mls/hr Piperacillin Sod/Tazobactam (Sod 4.5 gm/ Sodium Chloride) 100 mls @ 25 mls/hr IV Q8H [facility] Last Admin: 02/27/19 04:42 Dose: 25 mls/hr Clindamycin Phosphate 900 mg/ (Premix) 50 mls @ 100 mls/hr IV Q6H [facility] Ondansetron HCl (Zofran Odt) 4 mg PO Q4H PRN PRN Reason: nausea, able to take PO Oxycodone HCl (Oxycodone) 5 - 10 mg PO Q3H PRN PRN Reason: Pain (moderate 4-6) Last Admin: 02/27/19 08:48 Dose: 10 mg Saccharomyces Boulardii (Florastor) 250 mg PO BID [facility] Last Admin: 02/27/19 08:48 Dose: 250 mg Sodium Chloride (Saline Flush) 10 ml FLUSH ASDIRECTED PRN PRN Reason: Keep Vein Open Last Admin: 02/23/19 12:50 Dose: 10 ml Vancomycin HCl (Pharmacy To Dose - Vancomycin) 1 dose .XX ASDIRECTED [facility] Discontinued Medications Amoxicillin/Clavulanate Potassium (Augmentin 875 Mg/125 Mg) 1 tab PO TID [facility] Last Admin: 02/25/19 16:42 Dose: 1 tab Clindamycin Phosphate (Cleocin) Confirm Administered Dose 900 mg .ROUTE .STK- MED ONE Stop: 02/26/19 12:50 Last Admin: 02/26/19 13:01 Dose: Not Given Hydromorphone HCl (Dilaudid) 0.5 mg IVPUSH ONETIME ONE Stop: 02/23/19 11:42 Last Admin: 02/23/19 12:47 Dose: 0.5 mg Sodium Chloride (Normal Saline) 1,000 mls @ 999 mls/hr IV ONETIME ONE Stop: 02/23/19 12:41 Last Admin: 02/23/19 12:49 Dose: 999 mls/hr Vancomycin HCl 1 gm/Vancomycin HCl 500 mg/ Sodium Chloride 500 mls @ 250 mls/ hr IV ONETIME ONE Stop: 02/23/19 14:14 Last Admin: 02/23/19 18:00 Dose: 250 mls/hr Vancomycin HCl 1 gm/ Sodium (Chloride) 250 mls @ 250 mls/hr IV Q8H [facility] Last Admin: 02/24/19 06:06 Dose: Not Given Vancomycin HCl 1 gm/ Sodium (Chloride) 250 mls @ 250 mls/hr IV Q8H [facility] Last Admin: 02/24/19 16:40 Dose: Not Given Magnesium Sulfate 2 gm/ Premix 50 mls @ 25 mls/hr IV ONETIME ONE Stop: 02/24/19 16:52 Last Admin: 02/24/19 16:37 Dose: 25 mls/hr Magnesium Sulfate 4 gm/ Premix 50 mls @ 12.5 mls/hr IV ONETIME ONE Stop: 02/26/19 14:37 Last Admin: 02/26/19 11:30 Dose: 12.5 mls/hr Clindamycin Phosphate 900 mg/ (Sodium Chloride) 106 mls @ 200 mls/hr IV Q6H [facility] Last Admin: 02/26/19 13:46 Dose: Not Given Piperacillin Sod/Tazobactam (Sod 4.5 gm/ Sodium Chloride) 100 mls @ 200 mls/hr IV ONETIME ONE Stop: 02/26/19 12:29 Last Admin: 02/26/19 13:41 Dose: 200 mls/hr Clindamycin Phosphate 900 mg/ (Sodium Chloride) 106 mls @ 200 mls/hr IV Q6H [facility] Last Admin: 02/26/19 13:46 Dose: Not Given Clindamycin Phosphate 900 mg/ (Sodium Chloride) 106 mls @ 200 mls/hr IV Q6H [facility] Last Admin: 02/27/19 07:38 Dose: 200 mls/hr Ketorolac Tromethamine (Toradol) 30 mg IM Q6H PRN PRN Reason: Pain Last Admin: 02/24/19 08:11 Dose: 30 mg Magnesium Oxide (Magnesium Oxide) 800 mg PO ONETIME ONE Stop: 02/23/19 18:01 Last Admin: 02/23/19 18:07 Dose: 800 mg Oxycodone HCl (Oxycodone) 5 mg PO ONETIME ONE Stop: 02/23/19 16:27 Last Admin: 02/23/19 16:32 Dose: 5 mg Oxycodone HCl (Oxycodone) 5 - 10 mg PO Q4H PRN PRN Reason: Pain (moderate 4-6) Last Admin: 02/25/19 12:44 Dose: 10 mg Trimethoprim/Sulfamethoxazole (Septra Ds) 1 tab PO BID [facility] Last Admin: 02/25/19 08:42 Dose: 1 tab Vancomycin HCl (Pharmacy To Dose - Vancomycin) 1 dose .XX ONETIME ONE Stop: 02/23/19 11:42 Last Admin: 02/23/19 18:02 Dose: Not Given Vancomycin HCl (Pharmacy To Dose - Vancomycin) 0 dose .XX ASDIRECTED PRN PRN Reason: RX TO DOSE VANCOMYCIN - Exam Physical Findings Comments:: General: Alert, Oriented, Other (moderate to severe pain) HEENT: Conjunctiva Clear, Hearing Intact, Mucosa Moist & [place] Neck: Supple, Trachea Midline Lungs: Clear to Auscultation, Normal Respiratory Effort Cardiovascular: Regular Rate, Regular Rhythm GI/Abdominal Exam: Normal Bowel Sounds, Soft, Non-Tender, No Organomegaly, No Distention, No Abnormal Bruit Back Exam: Normal Inspection Extremities: Arm Pain, Increased Warmth, Other (right forearm and elbow are red , swollen, and extremity on the markings placed by providers in the past. It is exquisitely tender. Nonfluctuant.) Skin: Warm Neurological: Cranial Nerves Intact Neuro Extensive - Mental Status: Alert, Oriented x3, Normal Mood/Affect, Normal Cognition Neuro Extensive - Motor, Sensory, Reflexes: CN II-XII Intact, Normal Gait Psychiatric: Alert, Normal Affect, Normal Mood - Problem List & Annotations (1) Cellulitis of upper extremity Status: Acute Current Visit: Yes Qualifiers: Laterality: right Qualified Code(s): L03.113 - Cellulitis of right upper limb - Problem List Review Problem List Initiated/Reviewed/Updated: Yes - My Orders Last 24 Hours: My Active Orders 02/26/19 20:00 Piperacillin/Tazobactam [Piperacil-Tazobact] 4.5 gm Sodium Chloride 0.9% [ Normal Saline] 100 ml IV Q8H 02/26/19 21:00 Saccharomyces Boulardii [Florastor] 250 mg PO BID 02/27/19 13:00 Clindamycin Phosphate in D5W [Cleocin in D5W] 900 mg Premix Bag 1 bag IV Q6H 02/28/19 05:11 CBC WITH AUTO DIFF [HEME] AM CREATINE KINASE,CK [CHEM] AM LACTIC ACID [CHEM] AM - Plan Plan:: Cellulitis right upper extremity * marked improvement, WBC declining , back on vancomycin with addition of pip/ tazo and clindamycin IV, CT -early phlegmon. * pain control with po oxycodone.
--- NOTE | 2019-02-27 12:44 | CT ---
CT right forearm Technique: Multiple axial sections were obtained through the right forearm. Intravenous contrast not utilized which limits evaluation for abscess. Findings: Diffuse soft tissue edema identified within the subcutaneous tissues throughout the forearm. This presumably is due to cellulitis. No opaque foreign object is seen. No bony abnormality is identified. Low density also appears to be present within the deep volar muscles of the forearm suggesting myositis. No definite abscess is seen but more subtle abscess can be missed without contrast. Impression: 1. Diffuse subcutaneous edema presumably due to cellulitis. 2. Diffuse edema also suggested within the deep volar muscles in the forearm suggesting myositis. 3. No definite abscess is seen but abscess evaluation difficult without IV contrast. MRI could be obtained to further evaluate. Diagnostic code #3 I agree with preliminary report from [email or web address], finalized on 02/26/19, 12:37 PM Central Time MTDD
[2019-02-27] MEDS: Clindamycin Phosphate in D5W 900 MG in Premix Bag 1 BAG IV SCH ×4 (14:42→18:03)
[2019-02-28] MEDS: oxyCODONE 5 MG Tab PO PRN ×5 (00:23→23:58)
[2019-02-28] MEDS: Clindamycin Phosphate in D5W 900 MG in Premix Bag 1 BAG IV SCH ×6 (01:18→13:57)
[2019-02-28] MEDS: Piperacillin/Tazobactam 4.5 GM in Sodium Chloride 0.9% 100 ML IV SCH ×2 (04:59→12:51)
[2019-02-28] MEDS: Enoxaparin 40 MG/0.4 ML Syringe SUBCUT SCH (07:59)
[2019-02-28] MEDS: Saccharomyces Boulardii (Probiotic) 250 MG Cap PO SCH ×2 (07:59→21:34)
[2019-02-28] MEDS ORDERED: Acetaminophen 325 MG Tab PO PRN (10:48)
--- NOTE | 2019-02-28 13:12 | PCM.PN ---
- General Info Date of Service: 02/28/19 Admission Dx/Problem (Free Text): 'S HPI: "38-year-old male presented to the emergency room with right arm pain for the last 2-1/2 weeks. Patient states he does hit his arm regularly and he started developing redness at the right elbow to half weeks ago. It slowly grew and the pain worsened with it. On February 17 he went into the walk-in clinic who started him on Keflex. Symptoms worsened over the next 2 days so he returned to the walk -in clinic and they sent him to the emergency room. At the emergency room he was given doxycycline and after 2 more days of no improvement he returned to the emergency room. At that point he was given clindamycin and after 2 more days he is now here with worsening pain. Patient denies any fever or chills. He states that the arm has swollen significantly. He did have some night sweats last night. Emergency room patient was evaluated by both emergency room doctor and Dr. Clement in orthopedic surgery. It was felt that this is nonpurulent cellulitis and recommendation was to come in for IV antibiotics. In the emergency room they were unable to obtain as a large enough peripheral IV and central line placement was requested by the emergency room provider. Patient does have a history of multidrug use. He is on Suboxone for opioid use disorder. Patient was given Dilaudid 0.5 mg in the emergency room. He is on Suboxone one strip twice a day which is 8 mg per strip." 02/24/19, pain and edema improving, will switch to amox/clav and Septra DS combination, stop vancomycin. 02/25/2019, clinically minimal improvement, if no change in AM will switch back to IV vancomycin, pain controlled. 02/26/2019, no major change, will add pip/tazo and clindamycin, obtain repeat CT. 02/27/2019, marked improvement, less edema and erythema as well as pain, CT showed very early stage of possible phlegmon, will involve surgery if improvement stalls. 02/28/2019, continues to improve, will attempt trial of PO linezolid and clindamycin. - Patient Data Vitals - Most Recent: Last Vital Signs Temp 98.8 F 02/28/19 11:46 Pulse 81 02/28/19 11:46 Resp 16 02/28/19 11:46 BP 102/71 02/28/19 11:46 Pulse Ox 94 L 02/28/19 11:46 Weight - Most Recent: 145 lb 8 oz I&O - Last 24 Hours: Intake & Output 02/28/19 02/28/19 02/28/19 03:59 11:59 19:59 Intake Total 1440 Balance 1440 Lab Results Last 24 Hours: Laboratory Results - last 24 hr 02/28/19 02/28/19 02/28/19 Range/Units 05:10 05:10 05:10 WBC 9.09 H (4.23-9.07) K/mm3 RBC 4.32 L (4.63-6.08) M/mm3 Hgb 12.3 L (13.7-17.5) gm/L Hct 36.7 L (40.1-51.0) % MCV 85.0 (79.0-92.2) fl MCH 28.5 (25.7-32.2) pg MCHC 33.5 (32.2-35.5) g/dl RDW Std Deviation 42.3 (35.1-43.9) fL Plt Count 522 H (163-337) K/mm3 MPV 8.6 L (9.4-12.3) fl Neut % (Auto) 62.5 (34.0-67.9) % Lymph % (Auto) 22.6 (21.8-53.1) % Stone % (Auto) 13.1 H (5.3-12.2) % Eos % (Auto) 1.3 (0.8-7.0) Baso % (Auto) 0.2 (0.1-1.2) % Neut # (Auto) 5.68 H (1.78-5.38) K/mm3 Lymph # (Auto) 2.05 (1.32-3.57) K/mm3 Stone # (Auto) 1.19 H (0.30-0.82) K/mm3 Eos # (Auto) 0.12 (0.04-0.54) K/mm3 Baso # (Auto) 0.02 (0.01-0.08) K/mm3 Lactic Acid 0.4 (0.4-2.0) mmol/L Creatine Kinase 46 (39-308) U/L Vancomycin Trough (10.0-20.0) 02/28/19 Range/Units 10:45 WBC (4.23-9.07) K/mm3 RBC (4.63-6.08) M/mm3 Hgb (13.7-17.5) gm/L Hct (40.1-51.0) % MCV (79.0-92.2) fl MCH (25.7-32.2) pg MCHC (32.2-35.5) g/dl RDW Std Deviation (35.1-43.9) fL Plt Count (163-337) K/mm3 MPV (9.4-12.3) fl Neut % (Auto) (34.0-67.9) % Lymph % (Auto) (21.8-53.1) % Stone % (Auto) (5.3-12.2) % Eos % (Auto) (0.8-7.0) Baso % (Auto) (0.1-1.2) % Neut # (Auto) (1.78-5.38) K/mm3 Lymph # (Auto) (1.32-3.57) K/mm3 Stone # (Auto) (0.30-0.82) K/mm3 Eos # (Auto) (0.04-0.54) K/mm3 Baso # (Auto) (0.01-0.08) K/mm3 Lactic Acid (0.4-2.0) mmol/L Creatine Kinase (39-308) U/L Vancomycin Trough 13.0 (10.0-20.0) [place] Results Last 24 Hours: Microbiology 02/23/19 17:55 Aerobic Blood Culture - Preliminary Blood - Venous - Lab Draw NO GROWTH AFTER 4 DAYS Anaerobic Blood Culture - Preliminary NO GROWTH AFTER 4 DAYS 02/23/19 13:30 Aerobic Blood Culture - Preliminary Blood - Venous NO GROWTH AFTER 4 DAYS Anaerobic Blood Culture - Final Med Orders - Current: Current Medications Acetaminophen (Tylenol) 650 mg PO Q6H PRN PRN Reason: Pain Clindamycin HCl (Cleocin) 450 mg PO Q6H [facility] Enoxaparin Sodium (Lovenox) 40 mg SUBCUT DAILY [facility] Last Admin: 02/28/19 07:59 Dose: 40 mg Linezolid (Zyvox) 600 mg PO Q12H [facility] Ondansetron HCl (Zofran Odt) 4 mg PO Q4H PRN PRN Reason: nausea, able to take PO Oxycodone HCl (Oxycodone) 5 - 10 mg PO Q3H PRN PRN Reason: Pain (moderate 4-6) Last Admin: 02/28/19 12:02 Dose: 10 mg Saccharomyces Boulardii (Florastor) 250 mg PO BID [facility] Last Admin: 02/28/19 07:59 Dose: 250 mg Sodium Chloride (Saline Flush) 10 ml FLUSH ASDIRECTED PRN PRN Reason: Keep Vein Open Last Admin: 02/23/19 12:50 Dose: 10 ml Vancomycin HCl (Pharmacy To Dose - Vancomycin) 1 dose .XX ASDIRECTED YESI Discontinued Medications Amoxicillin/Clavulanate Potassium (Augmentin 875 Mg/125 Mg) 1 tab PO TID [facility] Last Admin: 02/25/19 16:42 Dose: 1 tab Clindamycin Phosphate (Cleocin) Confirm Administered Dose 900 mg .ROUTE .STK- MED ONE Stop: 02/26/19 12:50 Last Admin: 02/26/19 13:01 Dose: Not Given Hydromorphone HCl (Dilaudid) 0.5 mg IVPUSH ONETIME ONE Stop: 02/23/19 11:42 Last Admin: 02/23/19 12:47 Dose: 0.5 mg Sodium Chloride (Normal Saline) 1,000 mls @ 999 mls/hr IV ONETIME ONE Stop: 02/23/19 12:41 Last Admin: 02/23/19 12:49 Dose: 999 mls/hr Vancomycin HCl 1 gm/Vancomycin HCl 500 mg/ Sodium Chloride 500 mls @ 250 mls/ hr IV ONETIME ONE Stop: 02/23/19 14:14 Last Admin: 02/23/19 18:00 Dose: 250 mls/hr Vancomycin HCl 1 gm/ Sodium (Chloride) 250 mls @ 250 mls/hr IV Q8H [facility] Last Admin: 02/24/19 06:06 Dose: Not Given Vancomycin HCl 1 gm/ Sodium (Chloride) 250 mls @ 250 mls/hr IV Q8H [facility] Last Admin: 02/24/19 16:40 Dose: Not Given Magnesium Sulfate 2 gm/ Premix 50 mls @ 25 mls/hr IV ONETIME ONE Stop: 02/24/19 16:52 Last Admin: 02/24/19 16:37 Dose: 25 mls/hr Vancomycin HCl 1 gm/ Sodium (Chloride) 250 mls @ 250 mls/hr IV Q8H [facility] Last Admin: 02/28/19 10:47 Dose: 250 mls/hr Magnesium Sulfate 4 gm/ Premix 50 mls @ 12.5 mls/hr IV ONETIME ONE Stop: 02/26/19 14:37 Last Admin: 02/26/19 11:30 Dose: 12.5 mls/hr Clindamycin Phosphate 900 mg/ (Sodium Chloride) 106 mls @ 200 mls/hr IV Q6H [facility] Last Admin: 02/26/19 13:46 Dose: Not Given Piperacillin Sod/Tazobactam (Sod 4.5 gm/ Sodium Chloride) 100 mls @ 25 mls/hr IV Q8H [facility] Last Admin: 02/28/19 12:51 Dose: 25 mls/hr Piperacillin Sod/Tazobactam (Sod 4.5 gm/ Sodium Chloride) 100 mls @ 200 mls/hr IV ONETIME ONE Stop: 02/26/19 12:29 Last Admin: 02/26/19 13:41 Dose: 200 mls/hr Clindamycin Phosphate 900 mg/ (Sodium Chloride) 106 mls @ 200 mls/hr IV Q6H [facility] Last Admin: 02/26/19 13:46 Dose: Not Given Clindamycin Phosphate 900 mg/ (Sodium Chloride) 106 mls @ 200 mls/hr IV Q6H [facility] Last Admin: 02/27/19 07:38 Dose: 200 mls/hr Clindamycin Phosphate 900 mg/ (Premix) 50 mls @ 100 mls/hr IV Q6H [facility] Last Admin: 02/28/19 09:25 Dose: 100 mls/hr Ketorolac Tromethamine (Toradol) 30 mg IM Q6H PRN PRN Reason: Pain Last Admin: 02/24/19 08:11 Dose: 30 mg Magnesium Oxide (Magnesium Oxide) 800 mg PO ONETIME ONE Stop: 02/23/19 18:01 Last Admin: 02/23/19 18:07 Dose: 800 mg Oxycodone HCl (Oxycodone) 5 mg PO ONETIME ONE Stop: 02/23/19 16:27 Last Admin: 02/23/19 16:32 Dose: 5 mg Oxycodone HCl (Oxycodone) 5 - 10 mg PO Q4H PRN PRN Reason: Pain (moderate 4-6) Last Admin: 02/25/19 12:44 Dose: 10 mg Trimethoprim/Sulfamethoxazole (Septra Ds) 1 tab PO BID [facility] Last Admin: 02/25/19 08:42 Dose: 1 tab Vancomycin HCl (Pharmacy To Dose - Vancomycin) 1 dose .XX ONETIME ONE Stop: 02/23/19 11:42 Last Admin: 02/23/19 18:02 Dose: Not Given Vancomycin HCl (Pharmacy To Dose - Vancomycin) 0 dose .XX ASDIRECTED PRN PRN Reason: RX TO DOSE VANCOMYCIN - Exam Physical Findings Comments:: General: Alert, Oriented, Other (moderate to severe pain) HEENT: Conjunctiva Clear, Hearing Intact, Mucosa Moist & [place] Neck: Supple, Trachea Midline Lungs: Clear to Auscultation, Normal Respiratory Effort Cardiovascular: Regular Rate, Regular Rhythm GI/Abdominal Exam: Normal Bowel Sounds, Soft, Non-Tender, No Organomegaly, No Distention, No Abnormal Bruit Back Exam: Normal Inspection Extremities: Arm Pain, Increased Warmth, Other (right forearm and elbow are red , swollen, and extremity on the markings placed by providers in the past. It is exquisitely tender. Nonfluctuant.) Skin: Warm Neurological: Cranial Nerves Intact Neuro Extensive - Mental Status: Alert, Oriented x3, Normal Mood/Affect, Normal Cognition Neuro Extensive - Motor, Sensory, Reflexes: CN II-XII Intact, Normal Gait Psychiatric: Alert, Normal Affect, Normal Mood - Problem List & Annotations (1) Cellulitis of upper extremity Status: Acute Current Visit: Yes Qualifiers: Laterality: right Qualified Code(s): L03.113 - Cellulitis of right upper limb - Problem List Review Problem List Initiated/Reviewed/Updated: Yes - My Orders Last 24 Hours: My Active Orders 02/28/19 10:48 Acetaminophen [Tylenol] 650 mg PO Q6H PRN 02/28/19 13:15 Clindamycin HCl [Cleocin] 450 mg PO Q6H 02/28/19 15:00 Linezolid [Zyvox] 600 mg PO Q12H 03/01/19 05:00 MAGNESIUM [CHEM] AM PHOSPHORUS [CHEM] AM 03/01/19 05:11 BMP [BASIC METABOLIC PANEL,BMP] [CHEM] AM CBC WITH AUTO DIFF [HEME] AM - Plan Plan:: Cellulitis right upper extremity * marked improvement, WBC declining , started trial of PO linezolid and clindamycin.. * pain control with po oxycodone.
[2019-02-28] MEDS: Clindamycin HCl 150 MG Cap PO SCH ×2 (16:16→21:34)
[2019-02-28] MEDS: Linezolid 600 MG Tab PO SCH (16:16)
[2019-03-01] MEDS: Clindamycin HCl 150 MG Cap PO SCH ×2 (02:59→08:11)
[2019-03-01] MEDS: Linezolid 600 MG Tab PO SCH (02:59)
[2019-03-01] MEDS: oxyCODONE 5 MG Tab PO PRN (07:29)
[2019-03-01] MEDS: Saccharomyces Boulardii (Probiotic) 250 MG Cap PO SCH (08:12)
[2019-03-01] MEDS: Enoxaparin 40 MG/0.4 ML Syringe SUBCUT SCH (08:12)
--- NOTE | 2019-03-01 09:15 | PCM.DCSUM1 ---
Discharge Summary - Hospital Course Free Text/Narrative:: 38-year-old male presented to the emergency room with right arm pain for the last 2-1/2 weeks. Patient states he does hit his arm regularly and he started developing redness at the right elbow to half weeks ago. It slowly grew and the pain worsened with it. On February 17 he went into the walk-in clinic who started him on Keflex. Symptoms worsened over the next 2 days so he returned to the walk -in clinic and they sent him to the emergency room. At the emergency room he was given doxycycline and after 2 more days of no improvement he returned to the emergency room. At that point he was given clindamycin and after 2 more days he is now here with worsening pain. Patient denies any fever or chills. He states that the arm has swollen significantly. He did have some night sweats last night. Emergency room patient was evaluated by both emergency room doctor and Dr. Clement in orthopedic surgery. It was felt that this is nonpurulent cellulitis and recommendation was to come in for IV antibiotics. In the emergency room they were unable to obtain as a large enough peripheral IV and central line placement was requested by the emergency room provider. Patient does have a history of multidrug use. He is on Suboxone for opioid use disorder. Patient was given Dilaudid 0.5 mg in the emergency room. He is on Suboxone one strip twice a day which is 8 mg per strip." 02/24/19, pain and edema improving, will switch to amox/clav and Septra DS combination, stop vancomycin. 02/25/2019, clinically minimal improvement, if no change in AM will switch back to IV vancomycin, pain controlled. 02/26/2019, no major change, will add pip/tazo and clindamycin, obtain repeat CT. 02/27/2019, marked improvement, less edema and erythema as well as pain, CT showed very early stage of possible phlegmon, will involve surgery if improvement stalls. 02/28/2019, continues to improve, will attempt trial of PO linezolid and clindamycin. 03/01/2019, significant improvement, will d/c on linezolid and clindamycin for 14 days and f/u with PCP/surgery within 2 weeks. Diagnosis: Stroke: No - Discharge Data Discharge Date: 03/01/19 Discharge Disposition: Home, Self-Care 01 Condition: Good - Discharge Diagnosis/Problem(s) (1) Cellulitis of upper extremity Status: Acute Current Visit: Yes Qualifiers: Laterality: right Qualified Code(s): L03.113 - Cellulitis of right upper limb - Patient Summary/Data Operative Procedure(s) Performed: repositioning of central venous catheter Consults: Consultations 02/23/19 15:17 Consult to Physician [CONS] Stat - Discharge Plan *PRESCRIPTION DRUG MONITORING PROGRAM REVIEWED*: No *COPY OF PRESCRIPTION DRUG MONITORING REPORT IN PATIENT ELLY: No Prescriptions/Med Rec: Clindamycin HCl [Cleocin] 450 mg PO Q6H 14 Days #56 cap Linezolid [Zyvox] 600 mg PO Q12H 14 Days #28 tablet oxyCODONE 10 mg PO Q6H PRN 10 Days #40 tablet PRN Reason: Pain (Moderate 4-6) Home Medications: Home Meds Albuterol [Ventolin HFA] 2 inh INH TID PRN 02/19/19 [History] Buprenorphine HCl/Naloxone HCl [Suboxone 4 mg-1 mg Sl Film] 8 mg PO ASDIRECTED 02/19/19 [History] Clindamycin HCl [Cleocin] 450 mg PO Q6H 14 Days #56 cap 03/01/19 [Rx] Linezolid [Zyvox] 600 mg PO Q12H 14 Days #28 tablet 03/01/19 [Rx] oxyCODONE 10 mg PO Q6H PRN 10 Days #40 tablet 03/01/19 [Rx] Patient Handouts: Steps to Quit Smoking Referrals: Edgardo Todd MD [Physician] - PCP,Unknown [Primary Care Provider] - - Discharge Summary/Plan Comment DC Time >30 min.: No - Patient Data Vitals - Most Recent: Last Vital Signs Temp 97.9 F 03/01/19 03:03 Pulse 79 03/01/19 08:26 Resp 16 03/01/19 08:26 BP 112/79 03/01/19 08:26 Pulse Ox 99 03/01/19 08:26 Weight - Most Recent: 142 lb 14.4 oz I&O - Last 24 hours: Intake & Output 02/28/19 03/01/19 03/01/19 19:59 03:59 11:59 Intake Total 750 800 Balance 750 800 Lab Results - Last 24 hrs: Laboratory Results - last 24 hr 02/28/19 03/01/19 03/01/19 Range/Units 10:45 05:10 05:10 WBC 9.51 H (4.23-9.07) K/mm3 RBC 4.55 L (4.63-6.08) M/mm3 Hgb 13.0 L (13.7-17.5) gm/L Hct 38.2 L (40.1-51.0) % MCV 84.0 (79.0-92.2) fl MCH 28.6 (25.7-32.2) pg MCHC 34.0 (32.2-35.5) g/dl RDW Std Deviation 41.9 (35.1-43.9) fL Plt Count 596 H (163-337) K/mm3 MPV 8.6 L (9.4-12.3) fl Neut % (Auto) 62.7 (34.0-67.9) % Lymph % (Auto) 22.4 (21.8-53.1) % [place] % (Auto) 12.2 (5.3-12.2) % Eos % (Auto) 2.0 (0.8-7.0) Baso % (Auto) 0.3 (0.1-1.2) % Neut # (Auto) 5.96 H (1.78-5.38) K/mm3 Lymph # (Auto) 2.13 (1.32-3.57) K/mm3 Ramsey # (Auto) 1.16 H (0.30-0.82) K/mm3 Eos # (Auto) 0.19 (0.04-0.54) K/mm3 Baso # (Auto) 0.03 (0.01-0.08) K/mm3 Sodium (136-145) mEq/L Potassium (3.5-5.1) mEq/L Chloride (98-107) mEq/L Carbon Dioxide (21-32) mEq/L Anion Gap (5-15) BUN (7-18) mg/dL Creatinine (0.7-1.3) mg/dL Est Cr Clr Drug Dosing mL/min Estimated GFR (MDRD) (>60) mL/min BUN/Creatinine Ratio (14-18) Glucose (74-106) mg/dL Calcium (8.5-10.1) mg/dL Phosphorus 3.5 (2.6-4.7) mg/dL Magnesium 1.8 (1.8-2.4) mg/dl Vancomycin Trough 13.0 (10.0-20.0) 03/01/19 Range/Units 05:10 WBC (4.23-9.07) K/mm3 RBC (4.63-6.08) M/mm3 Hgb (13.7-17.5) gm/L Hct (40.1-51.0) % MCV (79.0-92.2) fl MCH (25.7-32.2) pg MCHC (32.2-35.5) g/dl RDW Std Deviation (35.1-43.9) fL Plt Count (163-337) K/mm3 MPV (9.4-12.3) fl Neut % (Auto) (34.0-67.9) % Lymph % (Auto) (21.8-53.1) % [place] % (Auto) (5.3-12.2) % Eos % (Auto) (0.8-7.0) Baso % (Auto) (0.1-1.2) % Neut # (Auto) (1.78-5.38) K/mm3 Lymph # (Auto) (1.32-3.57) K/mm3 [place] # (Auto) (0.30-0.82) K/mm3 Eos # (Auto) (0.04-0.54) K/mm3 Baso # (Auto) (0.01-0.08) K/mm3 Sodium 138 (136-145) mEq/L Potassium 3.9 (3.5-5.1) mEq/L Chloride 102 (98-107) mEq/L Carbon Dioxide 26 (21-32) mEq/L Anion Gap 13.9 (5-15) BUN 19 H (7-18) mg/dL Creatinine 0.9 (0.7-1.3) mg/dL Est Cr Clr Drug Dosing 103.03 mL/min Estimated GFR (MDRD) > 60 (>60) mL/min BUN/Creatinine Ratio 21.1 H (14-18) Glucose 103 (74-106) mg/dL Calcium 9.5 (8.5-10.1) mg/dL Phosphorus (2.6-4.7) mg/dL Magnesium (1.8-2.4) mg/dl Vancomycin Trough (10.0-20.0) [place] Results - Last 24 hrs: Microbiology 02/23/19 17:55 Aerobic Blood Culture - Preliminary Blood - Venous - Lab Draw NO GROWTH AFTER 5 DAYS Anaerobic Blood Culture - Preliminary NO GROWTH AFTER 5 DAYS 02/23/19 13:30 Aerobic Blood Culture - Preliminary Blood - Venous NO GROWTH AFTER 5 DAYS Anaerobic Blood Culture - Final Med Orders - Current: Current Medications Acetaminophen (Tylenol) 650 mg PO Q6H PRN PRN Reason: Pain Last Admin: 02/28/19 19:05 Dose: 650 mg Clindamycin HCl (Cleocin) 450 mg PO Q6H [facility] Last Admin: 03/01/19 08:11 Dose: 450 mg Enoxaparin Sodium (Lovenox) 40 mg SUBCUT DAILY [facility] Last Admin: 03/01/19 08:12 Dose: 40 mg Linezolid (Zyvox) 600 mg PO Q12H [facility] Last Admin: 03/01/19 02:59 Dose: 600 mg Ondansetron HCl (Zofran Odt) 4 mg PO Q4H PRN PRN Reason: nausea, able to take PO Oxycodone HCl (Oxycodone) 5 - 10 mg PO Q3H PRN PRN Reason: Pain (moderate 4-6) Last Admin: 03/01/19 07:29 Dose: 10 mg Saccharomyces Boulardii (Florastor) 250 mg PO BID [facility] Last Admin: 03/01/19 08:12 Dose: 250 mg Sodium Chloride (Saline Flush) 10 ml FLUSH ASDIRECTED PRN PRN Reason: Keep Vein Open Last Admin: 02/23/19 12:50 Dose: 10 ml Discontinued Medications Amoxicillin/Clavulanate Potassium (Augmentin 875 Mg/125 Mg) 1 tab PO TID [facility] Last Admin: 02/25/19 16:42 Dose: 1 tab Clindamycin Phosphate (Cleocin) Confirm Administered Dose 900 mg .ROUTE .STK- MED ONE Stop: 02/26/19 12:50 Last Admin: 02/26/19 13:01 Dose: Not Given Hydromorphone HCl (Dilaudid) 0.5 mg IVPUSH ONETIME ONE Stop: 02/23/19 11:42 Last Admin: 02/23/19 12:47 Dose: 0.5 mg Sodium Chloride (Normal Saline) 1,000 mls @ 999 mls/hr IV ONETIME ONE Stop: 02/23/19 12:41 Last Admin: 02/23/19 12:49 Dose: 999 mls/hr Vancomycin HCl 1 gm/Vancomycin HCl 500 mg/ Sodium Chloride 500 mls @ 250 mls/ hr IV ONETIME ONE Stop: 02/23/19 14:14 Last Admin: 02/23/19 18:00 Dose: 250 mls/hr Vancomycin HCl 1 gm/ Sodium (Chloride) 250 mls @ 250 mls/hr IV Q8H [facility] Last Admin: 02/24/19 06:06 Dose: Not Given Vancomycin HCl 1 gm/ Sodium (Chloride) 250 mls @ 250 mls/hr IV Q8H [facility] Last Admin: 02/24/19 16:40 Dose: Not Given Magnesium Sulfate 2 gm/ Premix 50 mls @ 25 mls/hr IV ONETIME ONE Stop: 02/24/19 16:52 Last Admin: 02/24/19 16:37 Dose: 25 mls/hr Vancomycin HCl 1 gm/ Sodium (Chloride) 250 mls @ 250 mls/hr IV Q8H [facility] Last Admin: 02/28/19 10:47 Dose: 250 mls/hr Magnesium Sulfate 4 gm/ Premix 50 mls @ 12.5 mls/hr IV ONETIME ONE Stop: 02/26/19 14:37 Last Admin: 02/26/19 11:30 Dose: 12.5 mls/hr Clindamycin Phosphate 900 mg/ (Sodium Chloride) 106 mls @ 200 mls/hr IV Q6H [facility] Last Admin: 02/26/19 13:46 Dose: Not Given Piperacillin Sod/Tazobactam (Sod 4.5 gm/ Sodium Chloride) 100 mls @ 25 mls/hr IV Q8H [facility] Last Admin: 02/28/19 12:51 Dose: 25 mls/hr Piperacillin Sod/Tazobactam (Sod 4.5 gm/ Sodium Chloride) 100 mls @ 200 mls/hr IV ONETIME ONE Stop: 02/26/19 12:29 Last Admin: 02/26/19 13:41 Dose: 200 mls/hr Clindamycin Phosphate 900 mg/ (Sodium Chloride) 106 mls @ 200 mls/hr IV Q6H [facility] Last Admin: 02/26/19 13:46 Dose: Not Given Clindamycin Phosphate 900 mg/ (Sodium Chloride) 106 mls @ 200 mls/hr IV Q6H [facility] Last Admin: 02/27/19 07:38 Dose: 200 mls/hr Clindamycin Phosphate 900 mg/ (Premix) 50 mls @ 100 mls/hr IV Q6H [facility] Last Admin: 02/28/19 13:57 Dose: Not Given Ketorolac Tromethamine (Toradol) 30 mg IM Q6H PRN PRN Reason: Pain Last Admin: 02/24/19 08:11 Dose: 30 mg Magnesium Oxide (Magnesium Oxide) 800 mg PO ONETIME ONE Stop: 02/23/19 18:01 Last Admin: 02/23/19 18:07 Dose: 800 mg Oxycodone HCl (Oxycodone) 5 mg PO ONETIME ONE Stop: 02/23/19 16:27 Last Admin: 02/23/19 16:32 Dose: 5 mg Oxycodone HCl (Oxycodone) 5 - 10 mg PO Q4H PRN PRN Reason: Pain (moderate 4-6) Last Admin: 02/25/19 12:44 Dose: 10 mg Trimethoprim/Sulfamethoxazole (Septra Ds) 1 tab PO BID [facility] Last Admin: 02/25/19 08:42 Dose: 1 tab Vancomycin HCl (Pharmacy To Dose - Vancomycin) 1 dose .XX ONETIME ONE Stop: 02/23/19 11:42 Last Admin: 02/23/19 18:02 Dose: Not Given Vancomycin HCl (Pharmacy To Dose - Vancomycin) 0 dose .XX ASDIRECTED PRN PRN Reason: RX TO DOSE VANCOMYCIN Vancomycin HCl (Pharmacy To Dose - Vancomycin) 1 dose .XX ASDIRECTED YESI - Exam Physical Findings Comments:: General: Alert, Oriented, Other (moderate to severe pain) HEENT: Conjunctiva Clear, Hearing Intact, Mucosa Moist & [place] Neck: Supple, Trachea Midline Lungs: Clear to Auscultation, Normal Respiratory Effort Cardiovascular: Regular Rate, Regular Rhythm GI/Abdominal Exam: Normal Bowel Sounds, Soft, Non-Tender, No Organomegaly, No Distention, No Abnormal Bruit Back Exam: Normal Inspection Extremities: Arm Pain, Increased Warmth, Other (right forearm and elbow are red , swollen, and extremity on the markings placed by providers in the past. It is tender. Nonfluctuant.) Skin: Warm Neurological: Cranial Nerves Intact Neuro Extensive - Mental Status: Alert, Oriented x3, Normal Mood/Affect, Normal Cognition Neuro Extensive - Motor, Sensory, Reflexes: CN II-XII Intact, Normal Gait Psychiatric: Alert, Normal Affect, Normal Mood
== END 2019-03-01 11:30 | disposition home or self-care (01) | DRG 383 ==
LOC: JD.ED 10:33 → JD.MS 13:53
PROVIDERS: ADMIT Family Medicine; ATTEND Family Medicine
PROC: 05HM33Z Insertion of Infusion Device into Right Internal Jugular Vein, Percutaneous Approach (ICD-10-PCS; principal; 2019-02-23)
PROC: 02HV33Z Insertion of Infusion Device into Superior Vena Cava, Percutaneous Approach (ICD-10-PCS; 2019-02-23)
PROC: B548ZZA Ultrasonography of Superior Vena Cava, Guidance (ICD-10-PCS; 2019-02-23)
DX: L03.113 Cellulitis of right upper limb (principal); Z79.899 Other long term (current) drug therapy; H54.7 Unspecified visual loss; J45.909 Unspecified asthma, uncomplicated; F17.210 Nicotine dependence, cigarettes, uncomplicated; F11.11 Opioid abuse, in remission; T82.524A Displacement of infusion catheter, initial encounter
CPT/HCPCS: 36415; 36556; 71045; 71045-26; 73200-26-RT; 73200-RT; 80048; 80053; 80202; 80306; 82550; 83605; 83735; 84100; 85007; 85025; 85027; 86140; 87040; 87641; 96361; 96374; 99284; 99285-25; A9270-GY; J1170; J1650; J1885; J2543; J3370; J3475; J3490; J7030; J7040; J7050

== ENCOUNTER 2019-05-17 08:32 | Day surgery (SDC) | payer BC ==
[~2019-05-17 08:32] MED LIST: Lidocaine 1%/Sod Bicarbonate in NS 8.4% 1 ML Syringe IDERM PRN; Sodium Chloride 0.9% 10 ML Syringe FLUSH PRN
[2019-05-17] MEDS: Lactated Ringers 1,000 ML IV SCH ×2 (09:55→12:46)
[2019-05-17] MEDS ORDERED: Bupivacaine 0.25% 10 ML SDV ONE (10:05)
[2019-05-17] MEDS ORDERED: Albuterol 0.083% 2.5 MG/3 ML Neb Soln NEB ONE (10:11)
--- NOTE | 2019-05-17 10:11 | PCM.PREANE ---
Preanesthetic Assessment - Procedure Proposed Procedure: I and D of right forearm abscess - Anesthesia/Transfusion/Family Hx Anesthesia History: No Prior Anesthesia Family History of Anesthesia Reaction: No Transfusion History: No Prior Transfusion(s) - Review of Systems General: No Symptoms Pulmonary: No Symptoms Cardiovascular: No Symptoms Gastrointestinal: No Symptoms Neurological: No Symptoms Other: Reports: Neck Pain (from central line a few months ago) - Physical Assessment NPO Status Date: 05/16/19 NPO Status Time: 23:59 Vital Signs: Last Vital Signs Temp 98.8 F 05/17/19 08:35 Pulse 80 05/17/19 08:35 Resp 16 05/17/19 08:35 BP 120/82 05/17/19 08:35 Pulse Ox 97 05/17/19 08:35 Height: 5 ft 10 in Weight: 61.689 kg ASA Class: 2 Mental Status: Alert & Oriented x3 Airway Class: Mallampati = 1 Dentition: Reports: Normal Dentition Thyro-Mental Finger Breadths: 3 Mouth Opening Finger Breadths: 3 ROM/Head Extension: Full Lungs: Clear to Auscultation, Normal Respiratory Effort Cardiovascular: Regular Rate, Regular Rhythm - Allergies Allergies/Adverse Reactions: Allergies Allergy/AdvReac Type Severity Reaction Status Date / Time No Known Allergies Allergy Verified 05/16/19 13:15 - Blood Blood Available: No - Acknowledgements Anesthesia Type Planned: General Anesthesia Pt an Appropriate Candidate for the Planned Anesthesia: Yes Alternatives and Risks of Anesthesia Discussed w Pt/Guardian: Yes Pt/Guardian Understands and Agrees with Anesthesia Plan: Yes PreAnesthesia Questionnaire HEENT History: Reports: Impaired Vision Cardiovascular History: Reports: None Respiratory History: Reports: Asthma Gastrointestinal History: Reports: None Genitourinary History: Reports: None BINDING PRINTER History: Reports: None Musculoskeletal History: Reports: None Other Musculoskeletal History: olecranon bursitis Neurological History: Reports: None Psychiatric History: Reports: Addiction Endocrine/Metabolic History: Reports: None Hematologic History: Reports: None Immunologic History: Reports: None Oncologic (Cancer) History: Reports: None Dermatologic History: Reports: Other (See Below) Other Dermatologic History: burisitis to left and right elbows, cellulitis and abcess - Infectious Disease History Infectious Disease History: Reports: None - Past Surgical History Head Surgeries/Procedures: Reports: None HEENT Surgical History: Reports: Oral Surgery Cardiovascular Surgical History: Reports: None Respiratory Surgical History: Reports: None GI Surgical History: Reports: None Female Surgical History: Reports: None Male Surgical History: Reports: None Endocrine Surgical History: Reports: None Neurological Surgical History: Reports: None Oncologic Surgical History: Reports: None Dermatological Surgical History: Reports: None - SUBSTANCE USE Smoking Status *Q: Current Every Day Smoker Tobacco Use Within Last Twelve Months: Cigarettes Second Hand Smoke Exposure: Yes Days Per Week of Alcohol Use: 0 Number of Drinks Per Day: 0 Total Drinks Per Week: 0 Recreational Drug Use History: No - HOME MEDS Home Medications: Home Meds Amoxicillin/Clavulanate K [Augmentin 875-125 MG] 1 tab PO TID #12 tablet [Rx] Albuterol [Ventolin HFA] 2 inh INH TID PRN 02/19/19 [History] traMADol [Ultram] 50 - 100 mg PO Q6H PRN #30 tab 05/17/19 [Rx] - CURRENT (IN HOUSE) MEDS Current Meds: Current Medications Lactated Ringer's (Ringers, Lactated) 1,000 mls @ 125 mls/hr IV ASDIRECTED YESI Last Admin: 05/17/19 09:55 Dose: 125 mls/hr Lidocaine/Sodium Bicarbonate (Buffered Lidocaine 1% In Ns 8.4%) 0.25 ml IDERM ONETIME PRN PRN Reason: Prior to IV Start Last Admin: 05/17/19 09:55 Dose: 0.25 ml Sodium Chloride (Saline Flush) 10 ml FLUSH ASDIRECTED PRN PRN Reason: Keep Vein Open
[2019-05-17] MEDS ORDERED: Ondansetron 4 MG/2 ML SDV ONE (10:26)
[2019-05-17] MEDS ORDERED: Propofol 200 MG/20 ML SDV ONE (10:26)
[2019-05-17] MEDS ORDERED: Midazolam 1 MG/ML 2 ML SDV ONE (10:26)
[2019-05-17] MEDS ORDERED: Lidocaine 1% 4 ML ONE (10:26)
[2019-05-17] MEDS ORDERED: fentaNYL 250 MCG/5 ML SDV ONE (10:27)
[2019-05-17] MEDS ORDERED: ceFAZolin 1 GM Vial ONE (10:42)
[2019-05-17] MEDS ORDERED: Vancomycin 1 GM SDV ONE (11:07)
[2019-05-17] MEDS: Bupivacaine 0.25% 10 ML SDV ONE ×2 (11:10→12:11)
[2019-05-17] MEDS ORDERED: fentaNYL 100 MCG/2 ML SDV ONE (11:24)
[2019-05-17] MEDS ORDERED: HYDROmorphone 0.5 MG/0.5 ML Syringe IVPUSH PRN (11:58)
[2019-05-17] MEDS ORDERED: fentaNYL 100 MCG/2 ML SDV IVPUSH PRN (11:58)
--- NOTE | 2019-05-17 11:59 | PCM.POSTAN ---
POST ANESTHESIA ASSESSMENT - MENTAL STATUS Mental Status: Somnolent - VITAL SIGNS Vital Signs: Last Vital Signs Temp 37.1 C 05/17/19 08:35 Pulse 80 05/17/19 08:35 Resp 16 05/17/19 08:35 BP 120/82 05/17/19 08:35 Pulse Ox 97 05/17/19 10:17 - RESPIRATORY Respiratory Status: Respiratory Rate WNL, Airway Patent, O2 Saturation Stable, Supplemental Oxygen - CARDIOVASCULAR CV Status: Pulse Rate WNL, Blood Pressure Stable - GASTROINTESTINAL GI Status: No Symptoms - PAIN Pain Score: 0 - POST OP HYDRATION Hydration Status: Adequate & Stable - OBSERVATIONS Free Text/Narrative:: no anesthesia complications noted
[2019-05-17] MEDS ORDERED: traMADol 50 MG Tab PO PRN (13:02)
--- NOTE | 2019-05-17 13:34 | PCM48HPAN ---
Post Anesthesia Note - EVALUATION WITHIN 48HRS OF ANESTHETIC Vital Signs in Normal Range: Yes Patient Participated in Evaluation: Yes Respiratory Function Stable: Yes Airway Patent: Yes Cardiovascular Function Stable: Yes Hydration Status Stable: Yes Pain Control Satisfactory: Yes Nausea and Vomiting Control Satisfactory: Yes Mental Status Recovered: Yes Vital Signs: Last Vital Signs Temp 99.4 F 05/17/19 12:35 Pulse 71 05/17/19 12:35 Resp 13 05/17/19 12:35 BP 109/76 05/17/19 12:35 Pulse Ox 94 L 05/17/19 12:35
[2019-05-17 14:00] VITALS: BP 110/79
--- NOTE | 2019-05-19 07:14 | PCM.OPNOTE ---
- General Post-Op/Procedure Note Date of Surgery/Procedure: 05/17/19 Operative Procedure(s): irrigation and drainage or right forearm abscess Pre Op Diagnosis: right forearm subcutaneous abscess Post-Op Diagnosis: Same Anesthesia Technique: General LMA Primary Surgeon: Edgardo Todd Anesthesia Provider: Eitan Valenzuela Obstetrics Gyn Physician: Zita Davis EBL in mLs: 10 Complications: None Condition: Good
--- NOTE | 2019-05-22 08:02 | OR ---
DATE OF OPERATION: 05/17/2019 SURGEON: Edgardo Todd MD OPERATION PERFORMED: Irrigation and drainage of right forearm abscess. PREOPERATIVE DIAGNOSIS: Right forearm subcutaneous abscess. POSTOPERATIVE DIAGNOSIS: Right forearm subcutaneous abscess. ANESTHESIA: General LMA. ANESTHESIA PROVIDER: Jevon Swift. [employer]: Zita Davis PA-C. ESTIMATED BLOOD LOSS: 10 mL. COMPLICATIONS: None. CONDITION: Stable. DESCRIPTION OF PROCEDURE: The patient was identified in the preoperative holding area. Proper site was marked and identified by the surgeon. The patient was taken back to the operative theater where after adequate anesthesia, the patient right upper extremity was sterilely prepped and draped in the usual sterile fashion. OR time-out was performed. The patient did not receive antibiotics until after cultures were taken. At this time, the forearm abscess was identified over the subcutaneous region over the border of the ulna. Small incision was made over the abscess. At this time, a large amount of purulent material was taken out of the abscess. There was no foul-smelling odor. Three sets of cultures, both anaerobic as well as aerobic were then taken at this time. 3 L of normal saline were then irrigated through the abscess and a curette was used to roughen and get any purulent material out of any possible septations. Once it had been completely and thoroughly irrigated, nylon was used to close the skin incision. The patient had sterile soft dressing applied and was sent to PACU in stable condition. MMODAL /[id number]
== END 2019-05-17 14:40 | disposition home or self-care (01) ==
LOC: JD.SDS 08:32
PROVIDERS: ATTEND Orthopaedic Surgery
DX: L02.413 Cutaneous abscess of right upper limb (principal); J45.909 Unspecified asthma, uncomplicated; F17.210 Nicotine dependence, cigarettes, uncomplicated; Z79.899 Other long term (current) drug therapy; Z79.2 Long term (current) use of antibiotics
CPT/HCPCS: 10060; 87075; 87205; 94640; A9270; J0690; J2001; J2250; J2405; J2704; J3010; J3370; J3490; J7120; 87077; 87184; 87186